=== PATIENT | female | born 1960 | race Caucasian/White ===

== ENCOUNTER → 2016-12-25 | Outpatient (CLI) | payer BC ==
--- NOTE | 2016-12-25 10:08 | US ---
EXAMINATION TYPE: US pelvis complete transvag DATE OF EXAM: 12/25/2016 COMPARISON: NONE CLINICAL HISTORY: K62.3 Rectal prolapse. Pt states that when doctor did pelvic exam and had her bear down, that things were falling out, question uterine prolapse. TECHNIQUE: Transvaginal (TV) and Transabdominal (TA) Date of LMP: 10 years ago, no HRT EXAM MEASUREMENTS: Uterus: 6.3 x 3.4 x 4.6 cm Endometrial Stripe: 0.4 cm Right Ovary: 1.5 x 1.3 x 1.0 cm Left Ovary: 1.6 x 1.0 x 0.9 cm 1. Uterus: Anteverted wnl 2. Endometrium: wnl 3. Right Ovary: wnl 4. Left Ovary: wnl 5. Bilateral Adnexa: wnl 6. Posterior cul-de-sac: wnl IMPRESSION: Unremarkable study.
== END | disposition home or self-care (01) ==
LOC: RADUSWWP 07:01
PROVIDERS: ATTEND Family Medicine
DX: K62.3 Rectal prolapse (principal)
CPT/HCPCS: 76830; 76856

== ENCOUNTER → 2017-01-13 | Outpatient (CLI) | payer BC ==
[2017-01-13 14:14] LABS: Basophils % (A) 1 %; CH 31.5; CHCM 33.8; Eosinophils # (A) 0.2 k/uL (0-0.7); Eosinophils % (A) 3 %; HCT 38.8 % (34.0-46.0); HDW 2.38; HGB 13.2 gm/dL (11.4-16.0); Luc # (Auto) 0.19; Luc % (Auto) 3; Lymphocytes # (A) 1.2 k/uL (1.0-4.8); Lymphocytes % (A) 22 %; MCH 31.8 pg (25.0-35.0); MCHC 33.9 g/dL (31.0-37.0); MCV 93.8 fL (80.0-100.0); Mean Platelet Volume 7.5; Monocytes # (A) 0.4 k/uL (0-1.0); Monocytes % (A) 7 %; Neutrophils # (A) 3.6 k/uL (1.3-7.7); Neutrophils % (A) 64 %; RBC 4.14 m/uL (3.80-5.40); RDW 12.6 % (11.5-15.5); WBC 5.5 k/uL (3.8-10.6); WBC (Perox) 5.37
[2017-01-13 14:24] LABS: Anion Gap 9 mmol/L; Blood Urea Nitrogen 18 mg/dL (7-17); Carbon Dioxide 24 mmol/L (22-30); Chloride 108 mmol/L (98-107); Glucose 89 mg/dL (74-99); Non-African American GFR(MDRD) >60 (>60 ml/min/1.73 sqM); Potassium 4.5 mmol/L (3.5-5.1); Sodium 141 mmol/L (137-145)
== END | disposition home or self-care (01) ==
LOC: LABPAT 13:25
PROVIDERS: ATTEND Obstetrics & Gynecology
DX: Z01.812 Encounter for preprocedural laboratory examination (principal); N81.4 Uterovaginal prolapse, unspecified
CPT/HCPCS: 80051; 82565; 82947; 84520; 85025; 86850; 86900; 86901; 87086

== ENCOUNTER 2017-01-20 09:06 | Observation (INO) | payer BC ==
--- NOTE | 2017-01-17 05:46 | HP ---
DATE OF ADMISSION: 01/20/2017 HISTORY: This is a 56-year-old 7, para 4-0-3-4 woman who will be admitted for surgical repair of symptomatic pelvic prolapse. She reports bothersome tissue protrusion from the vagina with activity. On examination, she is found to have a third degree cystocele, third degree cervical uterine prolapse and second degree rectocele. She denies any vaginal bleeding, urinary incontinence or incontinence of stool or flatus. She has no prior history of urinary incontinence. ALLERGIES: None. MEDICATIONS: 1. Levothyroxine 50 mcg q. day. 2. Ibuprofen 800 mg t.i.d. p.r.n. PAST MEDICAL HISTORY: Hypothyroidism and pelvic prolapse. PAST SURGICAL HISTORY: Rotator cuff repair in 2014 and tubal ligation in the distant past. REPRODUCTIVE HISTORY: The patient is a 8, para 4-0-3-4 with a history of 4 vaginal deliveries and 3 miscarriages. Her last menstrual period was in 2009 and she has no history of postmenopausal bleeding. She has no history of abnormal Pap smears or STDs. SOCIAL HISTORY: She is . She is a former smoker having quit in 2015. She is a social alcohol user. FAMILY HISTORY: Significant for lymphoma in her father and multiple family members with skin cancer. REVIEW OF SYSTEM: Positive for pelvic and abdominal pressure, low back pain and tissue protrusion from the vagina. Negative for vaginal bleeding, incontinence, urinary retention, chronic constipation or diarrhea. PHYSICAL EXAM: Height 5 feet 3-1/2 inches, weight 172 pounds. Blood pressure 124 /90. In general, this is a pleasant female in no obvious distress. HEENT exam is unremarkable with no palpable lymphadenopathy or thyromegaly. The lungs are clear to auscultation bilaterally and the heart is a regular rate and rhythm with no detectable murmur. The abdomen is slim, soft and nontender without rebound, guarding or flank pain. On pelvic examination, there is tissue visible at the introitus. With speculum examination and Valsalva, there is a third degree cystocele, third degree cervical uterine prolapse and second degree rectocele. On bimanual examination, the uterus is small, freely mobile and in the midline. There are no adnexal abnormalities appreciated. Rectovaginal examination confirms. Neurologically, the patient is grossly intact with no focal deficits. There are no obvious skin lesions or cyanosis noted. ASSESSMENT: A 56-year-old 7, para 4 woman with symptomatic third degree pelvic prolapse. She is scheduled to undergo a total vaginal hysterectomy with anterior colporrhaphy and possible posterior colporrhaphy. This procedure, anticipated recovery course and risks have been reviewed with the patient in detail in the office setting. Risks include, but are not limited to bleeding, transfusion, infection, laparotomy, damage to bowel, bladder, ureters and/or other pelvic or abdominal structures. There are anesthesia complications, risks of DVT, PE and/or . She also understands the risk of pelvic prolapse recurrence in the future. The patient understands these risks, a second opinion has been offered and declined and she is scheduled to undergo the above named procedure on 01/20/17. SOLANGE
[2017-01-17 09:13] VITALS: BMI 32.3
[~2017-01-20 09:06] MED LIST: DEXAMETHASONE SOD PHOSPHATE 10 MG/ML 1 ML VIAL IV ONE; ONDANSETRON 4 MG/2 ML VIAL IVP ONE; SCOPOLAMINE 1.5MG/72HR PATCH TRANSDERM ONE; ceFAZolin 2 GM in SODIUM CHLORIDE 0.9% 100 ML IVPB ONE
[2017-01-20] MEDS: LACTATED RINGERS 1,000 ML IV SCH ×2 (10:15→20:02)
[2017-01-20] MEDS ORDERED: LIDOCAINE 1% 20 ML VIAL (10MG/ML) FOR IV START INTRADERMA ONE (10:18)
[2017-01-20] MEDS: MIDAZOLAM 2 MG/2 ML VIAL IV PRN ×2 (10:36→11:05)
[2017-01-20] MEDS ORDERED: LIDOCAINE 1% INJ 10MG/ML (20 ML MDV) ONE (11:57)
[2017-01-20] MEDS ORDERED: SUCCINYLCHOLINE CHLORIDE 100 MG/5 ML SYR IV ONE (11:57)
[2017-01-20] MEDS ORDERED: MIDAZOLAM 2 MG/2 ML VIAL ONE (11:57)
[2017-01-20] MEDS ORDERED: HYDROmorphone (PF) 1 MG/ML ONE (11:57)
[2017-01-20] MEDS ORDERED: fentaNYL (PF) 50 MCG/ML 2 ML AMP ONE (11:57)
[2017-01-20] MEDS ORDERED: GLYCOPYRROLATE 0.2 MG/ML 2 ML VIAL ONE (11:57)
[2017-01-20] MEDS ORDERED: ROCURONIUM BROMIDE 10 MG/ML 10 ML VIAL IV ONE (11:57)
[2017-01-20] MEDS ORDERED: NEOSTIGMINE 1 MG/ML 10 ML VIAL ONE (11:57)
[2017-01-20] MEDS ORDERED: PROPOFOL 10 MG/ML 20 ML VIAL IV ONE (11:57)
[2017-01-20] MEDS ORDERED: KETOROLAC 30 MG/ML 1 ML VIAL ONE (11:57)
[2017-01-20] MEDS ORDERED: VASOPRESSIN 20 UNIT/ML 1 ML VIAL SQ ONE ×2 (12:21)
[2017-01-20] MEDS ORDERED: BACITRACIN 500 UNIT/GM OINT 28.4 GM TUBE TOPICAL ONE (12:45)
[2017-01-20] MEDS ORDERED: LACTATED RINGERS 1,000 ML IV ONE (12:53)
--- NOTE | 2017-01-20 13:12 | P.OP ---
Date of Procedure: 01/20/17 Preoperative Diagnosis: Third-degree cystocele Third-degree cervical uterine prolapse Second-degree rectocele Postoperative Diagnosis: Same Procedure(s) Performed: Total vaginal hysterectomy with anterior colporrhaphy Implants: Anesthesia: CHRISTIANAA Surgeon: Doris Jaramillo Floor Cashier #1: Whit Guido Estimated Blood Loss (ml): 15 IV fluids (ml): 1,000 Urine output (ml): 150 Pathology: other (Cervix and uterus) Condition: stable Disposition: PACU Indications for Procedure: Symptomatic third-degree cystocele, third degree cervical uterine prolapse and second-degree rectocele Operative Findings: As above Description of Procedure: After the patient was met preoperatively and all questions were answered, she was taken to the operating room where anesthetic was administered without incident. She was in positioned, prepped and draped in the dorsal high lithotomy position. The bladder was drained for approximately 100 mL of clear urine. A weighted speculum was placed in the vagina and the cervix was grasped anteriorly with a single-tooth tenaculum. Dilute vasopressin solution was infused in the vaginal mucosa circumferentially about the cervix. An incision with the scalpel was made circumferentially about the cervix. The vaginal mucosa was probably away from the underlying cervical tissue. The posterior peritoneum was entered sharply and tagged with 0 Vicryl suture. The long weighted speculum was then placed after the short weighted speculum was removed. The anterior mucosa was further advanced. The uterosacral ligaments were clamped, cut and suture ligated bilaterally and tagged. 2-0 Vicryl suture was utilized throughout muscle otherwise indicated. The bladder was advanced both sharply and bluntly anteriorly. The uterine vasculature was then clamped cut and suture ligated bilaterally. The round ligaments were clamped cut and suture ligated bilaterally. The posterior fundus was then delivered. The anterior peritoneum was entered sharply. The right followed by the left cornual pedicles were clamped. The specimen was removed. The cornual pedicles were doubly suture ligated. Both pedicles were inspected and noted to be hemostatic. Neither ovary was easily visualized and the surgical field. No obvious pelvic masses or adnexal masses were appreciated. The long weighted speculum was removed and the short weighted speculum was replaced. The peritoneum was then closed in a pursestring fashion. The uterosacral ligaments were then reapproximated including the vaginal cuff in the midline and the cuff was closed in an interrupted fashion. Attention was then turned to the anterior pair. The anterior vaginal Yu was infused with additional dilute vasopressin solution, 10 mL's. The vaginal Koza was then undermined with the Metzenbaum scissors and incised in the midline up to a level of approximately 2 cm below the urethral orifice. The underlying bladder tissue was bluntly away from the vaginal Koza bilaterally to the level of the fascial defect. The vesicovaginal fascia was then reapproximated in the midline with 2- 0 Vicryl suture using approximate 4 Roula plication stitches. This effectively reduced the cystocele. Prior to placement of the plication stitches Corona catheter was placed and additional 20 mL of clear urine was obtained. The excess vaginal mucosa was trimmed and the vaginal mucosa was then closed in a running locked fashion with 2-0 Vicryl suture. At this point the posterior vagina was inspected. There is a small second-degree rectocele noted however it was felt as this as if this was repaired that this would foreshorten the vagina and close the introitus significantly enough that future dyspareunia may be a possibility. Therefore the procedure was terminated at this point. The vagina was packed with bacitracin-soaked Kerlix sponge. All counts reported to me as correct by the operating room staff and the patient was awoken from anesthetic without incident. She was then transported recovery in stable condition.
[2017-01-20] MEDS: HYDROmorphone 1 MG/ML 1 ML SYRINGE IVP PRN ×4 (13:27→13:58)
[2017-01-20] MEDS ORDERED: ONDANSETRON 4 MG/2 ML VIAL IVP ONE (13:38)
[2017-01-20] MEDS ORDERED: Acetaminophen-Codeine 300-30mg TAB PO PRN (14:58)
[2017-01-20] MEDS ORDERED: SIMETHICONE 80 MG CHEWABLE PO PRN (14:58)
[2017-01-20] MEDS ORDERED: ONDANSETRON 4 MG/2 ML VIAL IVP PRN (14:58)
[2017-01-20] MEDS ORDERED: diphenhydrAMINE 50 MG/ML 1 ML VIAL IVP PRN (14:58)
[2017-01-20] MEDS ORDERED: METOCLOPRAMIDE 5 MG/ML 2 ML VIAL IVP PRN (14:58)
[2017-01-20] MEDS ORDERED: IBUPROFEN 600 MG TAB PO PRN (14:58)
[2017-01-20] MEDS: Acetaminophen-Codeine 300-30mg TAB PO PRN (17:03)
[2017-01-20] MEDS: KETOROLAC 30 MG/ML 1 ML VIAL IVP PRN (19:45)
[2017-01-21] MEDS: SENNOSIDES-DOCUSATE SODIUM 1 EACH TAB PO SCH ×2 (00:07→12:18)
[2017-01-21] MEDS: Acetaminophen-Codeine 300-30mg TAB PO PRN ×3 (00:13→11:01)
[2017-01-21] MEDS: LACTATED RINGERS 1,000 ML IV SCH ×3 (01:05→06:22)
[2017-01-21] MEDS: KETOROLAC 30 MG/ML 1 ML VIAL IVP PRN (04:06)
[2017-01-21] MEDS ORDERED: LEVOTHYROXINE 50 MCG TAB PO SCH (06:30)
[2017-01-21 07:56] LABS: Basophils % (A) 0 %; CH 31.4; CHCM 33.4; Eosinophils % (A) 0 %; HDW 2.21; Luc # (Auto) 0.16; Luc % (Auto) 2; Lymphocytes # (A) 1.8 k/uL (1.0-4.8); Lymphocytes % (A) 18 %; MCH 31.9 pg (25.0-35.0); MCHC 33.7 g/dL (31.0-37.0); MCV 94.6 fL (80.0-100.0); Monocytes # (A) 0.5 k/uL (0-1.0); Monocytes % (A) 5 %; Neutrophils # (A) 7.6 k/uL (1.3-7.7); Neutrophils % (A) 75 %; RBC 2.97 m/uL (3.80-5.40); RDW 12.6 % (11.5-15.5); WBC 10.1 k/uL (3.8-10.6); WBC (Perox) 10.31
[2017-01-21 08:07] LABS: HGB 9.4 gm/dL (11.4-16.0)
--- NOTE | 2017-01-21 08:32 | P.DS ---
Providers Date of admission: 01/21/17 05:19 Expected date of discharge: 01/21/17 Attending physician: Doris Jaramillo Primary care physician: Thang Uriostegui - Discharge Diagnosis(es) (1) Cystocele or rectocele with uterine prolapse Current Visit: Yes Status: Acute Hospital Course: He 6-year-old woman with a history of symptomatic third-degree cystocele, third degree cervical uterine prolapse and second-degree rectocele. She was admitted on and went to the operating room where she underwent a total vaginal hysterectomy and anterior colporrhaphy under general anesthetic. Please see the operative report for details. By the evening of postoperative day 0 she was feeling very well. She was tolerating a general diet and her pain was well- controlled with oral pain medications. By the morning of postoperative day #1 her vaginal packing and Corona catheter were removed. Voiding trials were initiated. She was tolerating regular diet. Her physical exam was benign with no active vaginal bleeding. Her vital signs were stable. She was therefore discharged home pending successful outcome of postvoid trials. Procedures: Gen. hysterectomy with anterior colporrhaphy Patient Condition at Discharge: Good Plan - Discharge Summary New Discharge Prescriptions: New Acetaminophen-Codeine 300-30mg [Tylenol w/codeine #3] 2 each PO Q6HR PRN #30 tab PRN Reason: Severe Pain Ibuprofen [Motrin] 600 mg PO Q6HR PRN #0 tab PRN Reason: Mild Discomfort Sennosides-Docusate Sodium [Senokot-S] 2 each PO BID tab No Action Levothyroxine Sodium [Synthroid] 50 mcg PO DAILY Ibuprofen [Motrin] 800 mg PO DAILY PRN PRN Reason: Pain Discharge Medication List Ibuprofen [Motrin] 800 mg PO DAILY PRN 01/17/17 [History] Levothyroxine Sodium [Synthroid] 50 mcg PO DAILY 01/17/17 [History] Acetaminophen-Codeine 300-30mg [Tylenol w/codeine #3] 2 each PO Q6HR PRN #30 tab 01/21/17 [Rx] Ibuprofen [Motrin] 600 mg PO Q6HR PRN #0 tab 01/21/17 [Rx] Sennosides-Docusate Sodium [Senokot-S] 2 each PO BID tab 01/21/17 [Rx] Patient Instructions/Handouts: Hysterectomy (DC) Activity/Diet/Wound Care/Special Instructions: No heavy lifting greater than 10 pounds for the next 2 weeks. Nothing in the vagina, no intercourse for 6 weeks. All the office with any concerning signs or symptoms including vaginal bleeding, inability to void, severe abdominal pain or constipation. Discharge Disposition: HOME SELF-CARE
[2017-01-21 12:15] VITALS: BP 101/50; PULSE 95; RESP 16; TEMP 99
== END 2017-01-21 12:37 | disposition home or self-care (01) ==
LOC: OR 09:06 → 4FBP 13:06 → 6PED 13:06 → OR 01-21 05:19 → 4FBP 01-21 05:19
PROVIDERS: ADMIT Obstetrics & Gynecology; ATTEND Obstetrics & Gynecology
DX: N81.4 Uterovaginal prolapse, unspecified (principal); E03.9 Hypothyroidism, unspecified; Z79.899 Other long term (current) drug therapy; Z87.891 Personal history of nicotine dependence
CPT/HCPCS: 85025; 86850; 86900; 86901; 88307

== ENCOUNTER → 2017-11-11 | Outpatient (CLI) | payer OTHER, BC ==
--- NOTE | 2017-11-12 22:09 | FL ---
EXAMINATION TYPE: Right shoulder fluoroscopic-guided arthrogram injection. DATE OF EXAM: 11/11/2017 HISTORY: 57-year-old female rotator cuff pathology, lax joint. Patient reports rotator cuff repair 2 years ago. PROCEDURES: 1. Right shoulder fluoroscopy. 2. Right shoulder arthrogram. TECHNIQUE: The procedure, risks, and alternatives, were discussed with the patient, who requested that shiela alarcon The consent form was signed, and teach-back occurred. The site/side of the procedure was marked with a line with participation by the patient. The accompan emely paperwork was verified for consistency. A directed history and physical exam was performed prior to the procedure. Medication reconciliation was performed by ancillary personnel. A critical pause was performed with assisting personnel just pr ior to the procedure, and the patient's identity was confirmed using 2 identifiers. Imaging guidance was utilized to select the precise skin entry point just prior to the procedure, ant erior right shoulder. The right shoulder was prepped and draped in the usual sterile fashion and local 1% lidocaine anesthe helena was instilled. Under fluoroscopic guidance, a 22 gauge spinal needle was introduced into the rig ht glenohumeral joint. Appropriate needle tip position was confirmed after a small amount of contrast injection. Approximately 12 ml of a mixture of Isovue 300 iodinated contrast and gadolinium was injected into th e glenohumeral joint. The needle was then removed. The patient tolerated the procedure well. Initial images show widening at the AC joint on the AP view but with apparent joint space narrowing o f the axillary view. This is a new finding from 05/06/2014. On physical exam, there is a prominent rita mp along the superior aspect of the AC joint. After contrast administration, there is extension of contrast across the cuff into the overlying burs a and into the AC joint compatible with geyser sign. A post-procedure note was placed into the medical record. There was no immediate complication. After the procedure, the patient's condition was unchanged. Estimated blood loss was minimal. IMPRESSION: Technically successful right shoulder arthrogram injection for MRI. No immediate complication. There is a full-thickness tear of the rotator cuff and geyser sign.
--- NOTE | 2017-11-12 22:23 | MR ---
EXAMINATION TYPE: MR arthrogram right shoulder DATE OF EXAM: 11/11/2017 COMPARISON: Arthrogram injection same day HISTORY: 57 year-old female right shoulder arthrogram, rt shoulder pain x 6 mos, prior cuff repair 2 years ago. Lax joint. Technique: Multiplanar, multisequence images of the right shoulder were obtained after intra-articula r injection of a gadolinium mixture. Please refer to arthrogram injection report of the same day for further details. FINDINGS: The intracapsular portion of the long head biceps tendon is not seen. There appears to be prior pinni ng along the anterior humeral head possibly from prior long head biceps tenodesis. Some tendon fibers are seen along the mid to lower bicipital groove. The subscapularis tendon appears grossly intact. There is widening of the AC joint with contrast extending into the joint space and bulging the capsul e superiorly. Injected intra-articular contrast fills the subacromial/subdeltoid bursa and is contiguous with the j oint space and AC joint. There is evidence of double anchor repair of the supraspinatus tendon with a large re-tear of the entire supraspinatus tendon extending into the anterior most infraspinatus tend on fibers measuring 2.9 cm AP. The joint stump is retracted medially to the level of the AC joint by approximately 3.8 cm. The insertional fibers of the infraspinatus tendon are thickened and very heterogeneous. There is very mild fatty streaks within both supraspinatus and infraspinatus muscle bellies. Isolated fatty atrophy of the teres minor muscle belly. No mass lesion seen within the quadrilateral space. Evaluation of the glenohumeral joint shows a degenerative and blunted superior and posterior glenoid labrum. Findings suggest an elongated paralabral cyst posterior superior quadrant measuring 1.1 x 0.3 cm, axial series 701 image 14 and the coronal series 301 image 18. Prominent fluid distention of the glenohumeral joint. No Hill-Sachs deformity or os acromiale. IMPRESSION: 1. Large full-thickness re-tear involving the entire supraspinatus tendon with tear extending into th e anteriormost fibers of the infraspinatus tendon. This measures 2.9 cm AP with the stump retracted t o the level of the AC joint by 3.8 cm. 2. Severe insertional tendinosis of the infraspinatus tendon. 3. Only mild fatty streaks within both supraspinatus and infraspinous muscle bellies. Isolated fatty atrophy of the teres minor can be seen with quadrilateral space syndrome. Clinically correlate. 4. Secondary geyser sign widening the AC joint. 5. A pin along the anterior humeral head probably related to prior long head biceps tenodesis. The in tracapsular portion of the long head biceps tendon is not visualized. 6. Degenerative and blunted superior and posterior labrum with suggestion of a 1.1 x 0.3 cm posterior superior paralabral cyst.
== END | disposition home or self-care (01) ==
LOC: RADFLMAIN 12:58
PROVIDERS: ATTEND Orthopaedic Surgery
DX: M75.120 Complete rotator cuff tear or rupture of unspecified shoulder, not specified as traumatic (principal); M25.20 Flail joint, unspecified joint; M25.519 Pain in unspecified shoulder
CPT/HCPCS: 23350; 73040; 73222; J2001; A9581; Q9967

== ENCOUNTER → 2022-06-13 | Outpatient (CLI) | payer OTHER ==
--- NOTE | 2022-06-14 08:39 | XR ---
EXAMINATION TYPE: XR lumbosacral spine min 4V DATE OF EXAM: 06/13/2022 Comparison: None Clinical History: 61-year-old female M54.50 Neck/back pain Findings: 5 lumbar type vertebral bodies. Small T12 ribs. Facet arthropathy mid to lower lumbar spine. Degenera tive grade 1 anterolisthesis L4-L5. Vertebral body heights are preserved and remaining alignment is m aintained. Impression: Facet arthropathy mid to lower lumbar spine with a grade 1 anterolisthesis at L4-L5. No vertebral com pression collapse.
== END | disposition home or self-care (01) ==
LOC: RADXRMAIN 14:09
PROVIDERS: ATTEND Family Medicine
DX: M47.816 Spondylosis without myelopathy or radiculopathy, lumbar region (principal); M43.16 Spondylolisthesis, lumbar region
CPT/HCPCS: 72110

== ENCOUNTER 2022-09-25 14:34 | Emergency (ER) | payer BC ==
[2022-09-25 15:02] VITALS: TEMP 98.9
[2022-09-25] MEDS ORDERED: SODIUM CHLORIDE 0.9% 1,000 ML IV STA (16:27)
--- NOTE | 2022-09-25 16:30 | ED ---
General Adult HPI - General Chief complaint: Dizziness Stated complaint: Dizzy/Sob Time Seen by Provider: 09/25/22 15:10 Source: patient Mode of arrival: ambulatory Limitations: no limitations - History of Present Illness Initial comments: 62-year-old female presents emergency department reporting dizziness, jaw pain, neck pain and shortness of breath. States it has been intermittent for the past 3 weeks. Denies provocative factors. No chest pain. No fevers, chills or cough. No previous history of cardiac disease. No calf pain or swelling. No history of DVT or PE. Denies a symptoms are worse with any positional changes. No headaches. No speech deficits. She denies vertigo. No history of similar in the past. Has not seen anybody for her symptoms yet. No other alleviating, precipitating or modifying factors - Related Data Home Medications Medication Instructions Recorded Confirmed Ibuprofen [Motrin] 800 mg PO Q8H PRN 01/17/17 09/25/22 Escitalopram [Lexapro] 10 mg PO DAILY 09/25/22 09/25/22 Levothyroxine Sodium [Synthroid] 88 mcg PO DAILY 09/25/22 09/25/22 Allergies Allergy/AdvReac Type Severity Reaction Status Date / Time No Known Allergies Allergy Verified 09/25/22 18:43 Review of Systems ROS Statement: Those systems with pertinent positive or pertinent negative responses have been documented in the HPI. ROS Other: All systems not noted in ROS Statement are negative. Past Medical History Past Medical History: No Reported History History of Any Multi-Drug Resistant Organisms: None Reported Past Surgical History: Hysterectomy, Orthopedic Surgery Additional Past Surgical History / Comment(s): rt rotator cuff surgery x 3 Past Psychological History: Depression Smoking Status: Former smoker Past Alcohol Use History: None Reported Past Drug Use History: Marijuana General Exam Limitations: no limitations General appearance: alert, in no apparent distress Head exam: Present: atraumatic, normocephalic, normal inspection Eye exam: Present: normal appearance, PERRL, EOMI. Absent: scleral icterus, conjunctival injection, periorbital swelling ENT exam: Present: normal exam, mucous membranes moist Neck exam: Present: normal inspection. Absent: tenderness, meningismus, lymphadenopathy Respiratory exam: Present: normal lung sounds bilaterally. Absent: respiratory distress, wheezes, rales, rhonchi, stridor Cardiovascular Exam: Present: regular rate, normal rhythm, normal heart sounds. Absent: systolic murmur, diastolic murmur, rubs, gallop, clicks GI/Abdominal exam: Present: soft, normal bowel sounds. Absent: distended, tenderness, guarding, rebound, rigid Extremities exam: Present: normal inspection, full ROM, normal capillary refill. Absent: tenderness, pedal edema, joint swelling, calf tenderness Back exam: Present: normal inspection Neurological exam: Present: alert, oriented X3, CN II-XII intact Psychiatric exam: Present: normal affect, normal mood Skin exam: Present: warm, dry, intact, normal color. Absent: rash Course Vital Signs 09/25/22 09/25/22 09/25/22 14:57 17:00 17:07 Temperature 98.9 F Pulse Rate 69 60 Respiratory 18 20 Rate Blood Pressure 135/91 132/82 Blood Pressure 139/78 [Right Arm] O2 Sat by Pulse 98 97 97 Oximetry 09/25/22 09/25/22 09/25/22 17:12 17:17 17:30 Temperature Pulse Rate 59 L Respiratory 12 Rate Blood Pressure 143/87 Blood Pressure 152/93 142/87 [Right Arm] O2 Sat by Pulse 97 Oximetry 09/25/22 09/25/22 18:30 19:00 Temperature Pulse Rate 70 Respiratory 12 Rate Blood Pressure 125/79 Blood Pressure [Right Arm] O2 Sat by Pulse 92 L 95 Oximetry EKG Findings - EKG Comments: EKG Findings:: EKG demonstrates sinus bradycardia with a rate of 58. MT interval 183. QRS 93. QTC of 374. Inverted T waves 2, 3, V3. No acute ST segment elevation Medical Decision Making - Medical Decision Making Was pt. sent in by a medical professional or institution (, PA, MANAGER OF REVENUE, urgent care, hospital, or detention...) When possible be specific @ -No Did you speak to anyone other than the patient for history (EMS, parent, family, police, friend...)? What history was obtained from this source @ -No Did you review nursing and triage notes (agree or disagree)? Why? @ -I reviewed and agree with nursing and triage notes Were old charts reviewed (outside hosp., previous admission, EMS record, old EKG, old radiological studies, urgent care reports/EKG's, detention records)? Report findings @ -No old charts were reviewed Differential Diagnosis (chest pain, altered mental status, abdominal pain women, abdominal pain men, vaginal bleeding, weakness, fever, dyspnea, syncope, headache, dizziness, GI bleed, back pain, seizure, CVA, palpatations, mental health, musculoskeletal)? @ -acs, nstemi, stemi, cva, pe, cervical radiculopathy EKG interpreted by me (3pts min.). @ -yes X-rays interpreted by me (1pt min.). @ -None done CT interpreted by me (1pt min.). @ -yes U/S interpreted by me (1pt. min.). @ -yes What testing was considered but not performed or refused? (CT, X-rays, U/S, labs)? Why? @ -None What meds were considered but not given or refused? Why? @ -None Did you discuss the management of the patient with other professionals (professionals i.e. , PA, MANAGER OF REVENUE, lab, RT, psych nurse, psychiatric social worker supervisor, route rider, teacher, corporate trust officer, case aide)? Give summary @ -No Was smoking cessation discussed for >3mins.? @ -No Was critical care preformed (if so, how long)? @ -No Were there social determinants of health that impacted care today? How? (Homelessness, low income, unemployed, alcoholism, drug addiction, transportation, low edu. Level, literacy, decrease access to med. care, half-way, rehab)? @ -No Was there de-escalation of care discussed even if they declined (Discuss DNR or withdrawal of care, Hospice)? DNR status @ -No What co-morbidities impacted this encounter? (DM, HTN, Smoking, COPD, CAD, Cancer, CVA, ARF, Chemo, Hep., AIDS, mental health diagnosis, sleep apnea, morbid obesity)? @ -None Was patient admitted / discharged? Hospital course, mention meds given and rout e, prescriptions, significant lab abnormalities, going to OR and other pertinent info. @ -Upon arrival patient placed in room 28. History and physical exam is performed. She is placed on continuous pulse ox and cardiac monitoring. Laboratory studies were conducted and reviewed. D-dimer elevated at 0.7. CT the head and cervical spine is performed which demonstrates spondylitic changes and lower cervical spine. Right Sinusitis. Patient sent For CT which demonstrates no evidence of pulmonary embolism. Minimal reticular interstitial density in the lingula. Results are discussed the patient. Orthostatics are negative. Patient will be discharged home. Instructed to follow-up with her primary care doctor for her symptoms return for any new or worsening symptoms per patient agreeable discharged home in stable condition Undiagnosed new problem with uncertain prognosis? @ -yes Drug Therapy requiring intensive monitoring for toxicity (Heparin, Nitro, Insulin, Cardizem)? @ -No Were any procedures done? @ -No Diagnosis/symptom? @ -acute jaw pain, acute palpitations Acute, or Chronic, or Acute on Chronic? @ -acute Uncomplicated (without systemic symptoms) or Complicated (systemic symptoms)? @ -complicated Side effects of treatment? @ -No Exacerbation, Progression, or Severe Exacerbation? @ -No Poses a threat to life or bodily function? How? (Chest pain, USA, AR, pneumonia, PE, COPD, DKA, ARF, appy, cholecystitis, CVA, Diverticulitis, Homicidal, Suicidal, threat to staff... and all critical care pts) @ -yes - Lab Data Result diagrams: 09/25/22 17:07 09/25/22 17:07 Lab Results 09/25/22 09/25/22 09/25/22 Range/Units 17:07 17:07 17:07 WBC 9.4 (3.8-10.6) k/uL RBC 4.74 (3.80-5.40) m/uL Hgb 14.1 (11.4-16.0) gm/dL Hct 43.8 (34.0-46.0) % MCV 92.4 (80.0-100.0) fL MCH 29.8 (25.0-35.0) pg MCHC 32.3 (31.0-37.0) g/dL RDW 12.5 (11.5-15.5) % Plt Count 312 (150-450) k/uL MPV 8.5 Neutrophils % 60 % Lymphocytes % 30 % Monocytes % 5 % Eosinophils % 2 % Basophils % 1 % Neutrophils # 5.7 (1.3-7.7) k/uL Lymphocytes # 2.8 (1.0-4.8) k/uL Monocytes # 0.5 (0-1.0) k/uL Eosinophils # 0.1 (0-0.7) k/uL Basophils # 0.1 (0-0.2) k/uL D-Dimer (<0.60) mg/L FEU Sodium 141 (137-145) mmol/L Potassium 4.2 (3.5-5.1) mmol/L Chloride 103 (98-107) mmol/L Carbon Dioxide 28 (22-30) mmol/L Anion Gap 10 mmol/L BUN 13 (7-17) mg/dL Creatinine 0.66 (0.52-1.04) mg/dL Est GFR (CKD-EPI)AfAm >90 (>60 ml/min/1.73 sqM) Est GFR (CKD-EPI)NonAf >90 (>60 ml/min/1.73 sqM) Glucose 83 (74-99) mg/dL Calcium 10.4 H (8.4-10.2) mg/dL Total Bilirubin 0.6 (0.2-1.3) mg/dL AST 30 (14-36) U/L ALT 34 (4-34) U/L Alkaline Phosphatase 78 (38-126) U/L Troponin I <0.012 (0.000-0.034) ng/mL Total Protein 7.8 (6.3-8.2) g/dL Albumin 4.7 (3.5-5.0) g/dL TSH 0.664 (0.465-4.680) mIU/L 09/25/22 Range/Units 17:07 WBC (3.8-10.6) k/uL RBC (3.80-5.40) m/uL Hgb (11.4-16.0) gm/dL Hct (34.0-46.0) % MCV (80.0-100.0) fL MCH (25.0-35.0) pg MCHC (31.0-37.0) g/dL RDW (11.5-15.5) % Plt Count (150-450) k/uL MPV Neutrophils % % Lymphocytes % % Monocytes % % Eosinophils % % Basophils % % Neutrophils # (1.3-7.7) k/uL Lymphocytes # (1.0-4.8) k/uL Monocytes # (0-1.0) k/uL Eosinophils # (0-0.7) k/uL Basophils # (0-0.2) k/uL D-Dimer 0.70 H (<0.60) mg/L FEU Sodium (137-145) mmol/L Potassium (3.5-5.1) mmol/L Chloride (98-107) mmol/L Carbon Dioxide (22-30) mmol/L Anion Gap mmol/L BUN (7-17) mg/dL Creatinine (0.52-1.04) mg/dL Est GFR (CKD-EPI)AfAm (>60 ml/min/1.73 sqM) Est GFR (CKD-EPI)NonAf (>60 ml/min/1.73 sqM) Glucose (74-99) mg/dL Calcium (8.4-10.2) mg/dL Total Bilirubin (0.2-1.3) mg/dL AST (14-36) U/L ALT (4-34) U/L Alkaline Phosphatase (38-126) U/L Troponin I (0.000-0.034) ng/mL Total Protein (6.3-8.2) g/dL Albumin (3.5-5.0) g/dL TSH (0.465-4.680) mIU/L Disposition Clinical Impression: Dizziness, Palpitations, Jaw pain Disposition: HOME SELF-CARE Condition: Stable Instructions (If sedation given, give patient instructions): Dizziness (ED) Additional Instructions: Please follow-up with Dr. Uriostegui for further evaluation. I recommend Holter monitoring, stress test and echo. Return to the emergency room for any new or worsening symptoms Is patient prescribed a controlled substance at d/c from ED?: No Referrals: Thang Uriostegui DO [Primary Care Provider] - 1-2 days Time of Disposition: 19:59
[2022-09-25 17:46] LABS: Basophils # (A) 0.1 k/uL (0-0.2); Basophils % (A) 1 %; Eosinophils # (A) 0.1 k/uL (0-0.7); Eosinophils % (A) 2 %; HCT 43.8 % (34.0-46.0); HGB 14.1 gm/dL (11.4-16.0); Lymphocytes # (A) 2.8 k/uL (1.0-4.8); Lymphocytes % (A) 30 %; MCH 29.8 pg (25.0-35.0); MCHC 32.3 g/dL (31.0-37.0); MCV 92.4 fL (80.0-100.0); Mean Platelet Volume 8.5; Monocytes # (A) 0.5 k/uL (0-1.0); Monocytes % (A) 5 %; Neutrophils # (A) 5.7 k/uL (1.3-7.7); Neutrophils % (A) 60 %; Platelet Count 312 k/uL (150-450); RBC 4.74 m/uL (3.80-5.40); RDW 12.5 % (11.5-15.5); WBC 9.4 k/uL (3.8-10.6)
--- NOTE | 2022-09-25 17:51 | CT ---
EXAMINATION TYPE: CT brain bridgetine wo con DATE OF EXAM: 09/25/2022 COMPARISON: None HISTORY: c/o dizziness CT DLP: 1493.2 mGycm Automated exposure control for dose reduction was used. Images of the brain and cervical spine obtained with no contrast. Ventricles have normal size. There is no mass effect or midline shift. No sign of intracranial hemorr jean. Calvarium is intact. No evidence of cerebral edema. Skull base is intact. There is mucosal thic kening in the right maxillary sinus. Cervical vertebra show mild straightening. There is disc space narrowing at C5-6 and C6-7 with spurri ng of the endplates. There is hypertrophic mild cervical facet arthropathy. Prevertebral soft tissues are intact. IMPRESSION: Spondylotic changes in the lower cervical spine. Hypertrophic multilevel facet arthropathy. No fractu re. Negative CT scan of the brain. Right maxillary sinusitis.
[2022-09-25 18:00] LABS: ALT 34 U/L (4-34); AST 30 U/L (14-36); African American GFR (CKD) >90 (>60 ml/min/1.73 sqM); Albumin 4.7 g/dL (3.5-5.0); Alkaline Phosphatase 78 U/L (38-126); Anion Gap 10 mmol/L; Blood Urea Nitrogen 13 mg/dL (7-17); Calcium 10.4 mg/dL (8.4-10.2); Carbon Dioxide 28 mmol/L (22-30); Chloride 103 mmol/L (98-107); Glucose 83 mg/dL (74-99); Non-African American GFR(CKD) >90 (>60 ml/min/1.73 sqM); Potassium 4.2 mmol/L (3.5-5.1); Sodium 141 mmol/L (137-145); Total Bilirubin 0.6 mg/dL (0.2-1.3); Total Protein 7.8 g/dL (6.3-8.2)
[2022-09-25 19:10] VITALS: BP 125/79; PULSE 70; RESP 12
--- NOTE | 2022-09-25 19:27 | CT ---
EXAMINATION TYPE: CT chest angio for PE DATE OF EXAM: 09/25/2022 COMPARISON: None HISTORY: elevated d-dimer CT DLP: 447.8 mGycm Automated exposure control for dose reduction was used. CONTRAST: Performed with IV Contrast, patient injected with 100 mL of Isovue 370. Images obtained from the thoracic inlet to the diaphragm with the IV contrast. There are 3-D post pro cessed images. The lungs are clear of consolidation. No pleural effusion. Heart size is normal. No pericardial effus ion. There are no hilar masses. There is no mediastinal adenopathy. Thoracic aorta is intact. The ascendin g aorta measures 3.7 cm. No dissection. There is normal contrast opacification of the pulmonary arteries. No filling defects. The thoracic spine is intact. No compression fracture. Sternum is intact. Upper abdominal soft tissue s are intact. IMPRESSION: No evidence of pulmonary embolism. Negative exam. No suspicious pulmonary mass. Minimal reticular int erstitial density in the lingula left upper lobe.
== END 2022-09-25 20:26 | disposition home or self-care (01) ==
LOC: EC 14:34
DX: R42 Dizziness and giddiness (principal); R00.2 Palpitations; R68.84 Jaw pain; J32.0 Chronic maxillary sinusitis; M47.812 Spondylosis without myelopathy or radiculopathy, cervical region; F32.A Depression, unspecified; F12.90 Cannabis use, unspecified, uncomplicated; Z87.891 Personal history of nicotine dependence
CPT/HCPCS: 36415; 93005; 85379; 80053; 84443; 84484; 85025; 72125; 70450; 71275; 99284; Q9967

== ENCOUNTER → 2023-08-25 | Outpatient (CLI) | payer BC ==
--- NOTE | 2023-08-26 09:04 | MM ---
Reason for Exam: Screening (asymptomatic). Last mammogram was performed 23 year(s) and 10 month(s) ago. Patient History: Menarche at age 12. First Full-Term at age 21. Hysterectomy at age 56. Postmenopausal. Risk Values: Terri 5 year model risk: 1.5%. NCI Lifetime model risk: 6.8%. Prior Study Comparison: 10/24/1999 Bilateral Special View Mammogram, [facility]. Tissue Density: The breast tissue is heterogeneously dense. This may lower the sensitivity of mammography. Findings: Analyzed By CAD. Asymmetries right breast posterior nipple line slightly superiorly on MLO view and are 4.2 and 3.0 cm from the nipple on MLO view. Left breast: There is no suspicious group of microcalcifications or new suspicious mass. Overall Assessment: Benign, BI-RAD 2 Management: Diagnostic Mammogram of the right breast. [facility] will attempt to contact patient to return for supplemental views and ultrasound if indicated. Patient should continue monthly self-breast exams. A clinical breast exam by your physician is recommended on an annual basis. This exam should not preclude additional follow-up of suspicious palpable abnormalities. Note on Terri scores and lifetime risk: 1. A Terri score greater than 3% is considered moderate risk. If this is the case, consider specialist referral to assess eligibility for a risk reducing agent. 2. If overall lifetime risk for the development of breast cancer is 20% or higher, the patient may qualify for future screening with alternating mammogram and breast MRI. Electronically signed and approved by: Yoni Cline DO
== END | disposition home or self-care (01) ==
LOC: RADMAMWWP 10:08
PROVIDERS: ATTEND Family Medicine
DX: Z12.31 Encounter for screening mammogram for malignant neoplasm of breast (principal); Z78.0 Asymptomatic menopausal state
CPT/HCPCS: 77063; 77067

== ENCOUNTER → 2023-08-27 | Outpatient (CLI) | payer BC ==
--- NOTE | 2023-08-27 09:58 | MM ---
Reason for Exam: Additional evaluation requested from abnormal screening. Last screening mammogram was performed less than 1 month ago. Patient History: Menarche at age 12. First Full-Term at age 21. Hysterectomy at age 56. Postmenopausal. Maternal cousin had breast cancer under age 50. Risk Values: Terri 5 year model risk: 1.5%. NCI Lifetime model risk: 6.8%. Prior Study Comparison: 10/24/1999 Bilateral Special View Mammogram, [facility]. 08/25/2023 Bilateral MG 3D screening mammo w/cad, [facility]. Tissue Density: Right: There are scattered fibroglandular densities. Findings: Analyzed By CAD. Persistent two areas of nodularity in the central aspect anterior depth and outer central aspect middle depth with areas of nodularity measuring up to 9 mm. One appears to be along the retroareolar region and another may be 11-12 o'clock. Further ultrasound evaluation is recommended. Overall Assessment: Incomplete: need additional imaging evaluation, BI-RAD 0 Management: Diagnostic Breast Ultrasound of the right breast. Subareolar and periareolar as well as the 11 and 12:00 positions. Electronically signed and approved by: Jackelin Bingham M.D. Radiologist
--- NOTE | 2023-08-27 11:56 | USB ---
Reason for Exam: Additional evaluation requested from abnormal screening. Patient History: Menarche at age 12. First Full-Term at age 21. Hysterectomy at age 56. Postmenopausal. Maternal cousin had breast cancer under age 50. Risk Values: Terri 5 year model risk: 1.5%. NCI Lifetime model risk: 6.8%. Technique: Method: Targeted. Prior Study Comparison: 10/24/1999 Bilateral Special View Mammogram, [facility]. 08/25/2023 Bilateral MG 3D screening mammo w/cad, [facility]. Findings: The upper section of the breast of the right breast, the axilla of the right breast and the retroareolar of the right breast were scanned. Targeted ultrasound superior aspect 10:00 to 1:00 including scanning of the subareolar region and axilla. * At the 10:00 position, 5 cm from the nipple, there is a 7 x 4 mm probable cyst cluster and likely mammographic correlate. * At the 12:00 position, 3 cm from the nipple, there is a 9 x 3 mm probable cyst cluster and likely mammographic correlate. * At the 1:00 position, 3 cm from the nipple, there is a vague hypoechoic lesion with possible peripheral echogenicity. The patient reports frequent Motrin use. A small hematoma or small early solid lesion are both in the differential at this time. Three-month follow-up ultrasound to reassess. * No other solid or cystic lesion or axillary lymphadenopathy. Overall Assessment: Probably benign, BI-RAD 3 Management: Diagnostic Breast Ultrasound of the right breast in 3 months. Diagnostic Mammogram of the right breast in 6 months. A clinical breast exam by your physician is recommended on an annual basis and results should be correlated with mammographic findings. This exam should not preclude additional follow-up of suspicious palpable abnormalities. Results were given to the patient verbally at the time of exam. Electronically signed and approved by: Jackelin Bingham M.D. Radiologist
== END | disposition home or self-care (01) ==
LOC: RADMAMWWP 09:16
PROVIDERS: ATTEND Family Medicine
DX: R92.321 Mammographic fibroglandular density, right breast (principal); Z78.0 Asymptomatic menopausal state; Z80.3 Family history of malignant neoplasm of breast
CPT/HCPCS: 77061; 77065

== ENCOUNTER → 2023-11-13 | Outpatient (CLI) | payer BC ==
--- NOTE | 2023-11-13 22:16 | MR ---
EXAMINATION TYPE: MR hip LT wo con DATE OF EXAM: 11/13/2023 COMPARISON: Outside pelvic x-ray September 01, 2023 HISTORY: Left hip pain x1 year, PT 6 weeks not better, Standard multiplanar, multisequence MRI departmental protocol Multiplanar, multisequence images of the pelvis focusing on the left hip were acquired without contra st. FINDINGS: Asymmetric severe superior joint space loss is present. There is [id number] appearance wi th subchondral cystic change in the superior acetabulum and diminished T1 and increased T2 signal con sistent with edema involving the superior portion of the left femoral head. No bony fragments identif ied currently. Asymmetric moderate head neck collar spurring is present. Symmetric small to borderlin e moderate size lateral hip joint effusions are seen. Mild edema level of the greater trochanters charles aterally. No groin hernia or adenopathy is seen. No abnormal small or large bowel dilatation. Urinary bladder appears unremarkable. Uterus is surgical ly absent or atrophic in appearance. IMPRESSION: Asymmetric advanced degenerative change in the left hip joint is seen as detailed above.
--- NOTE | 2023-11-15 09:05 | MR ---
EXAMINATION TYPE: MR lumbar spine wo con DATE OF EXAM: 11/13/2023 COMPARISON: None HISTORY: Low back pain into left side x1 year CONTRAST: 0 mL intravenous Gadavist. TECHNIQUE: Multiplanar, multisequence images of the lumbar spine were acquired. FINDINGS: Cord terminates at the L1-2 level. Very subtle grade 1 spondylolisthesis of L4 internal 5 may be present. 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 These are greater on the left. Diffuse disc desiccation is present throughout the lumbar spine. L5-S1: Minimal disc bulge is present. No thecal sac contact or exiting nerve root contact evident. Mi ld facet hypertrophy is present. No spinal canal stenosis. No foraminal stenosis. L4-L5: No significant disc bulge or disc herniation. No spinal canal stenosis. No foraminal stenosi s. Mild facet hypertrophy is present with posterior lateral thecal sac contact. L3-L4: No significant disc bulge or disc herniation. No spinal canal stenosis. No foraminal stenosi s. Minimal the mentum flavum laxity is posterior lateral thecal sac contact. L2-L3: No significant disc bulge or disc herniation. No spinal canal stenosis. No foraminal stenosi s. L1-L2: No significant disc bulge or disc herniation. No spinal canal stenosis. No foraminal stenosi s. T12-L1: No significant disc bulge or disc herniation. No spinal canal stenosis. No foraminal stenos is. IMPRESSION: 1.
== END | disposition home or self-care (01) ==
LOC: RADMRIMAIN 15:31
PROVIDERS: ATTEND Orthopaedic Surgery
DX: M47.812 Spondylosis without myelopathy or radiculopathy, cervical region (principal); M25.452 Effusion, left hip
CPT/HCPCS: 72148

== ENCOUNTER → 2023-11-26 | Outpatient (CLI) | payer BC ==
--- NOTE | 2023-11-26 09:56 | USB ---
Reason for Exam: Follow-up at short interval from prior study. Patient History: Menarche at age 12. First Full-Term at age 21. Hysterectomy at age 56. Postmenopausal. Maternal cousin had breast cancer under age 50. Risk Values: Terri 5 year model risk: 1.5%. NCI Lifetime model risk: 6.8%. Technique: Method: Targeted. Prior Study Comparison: 10/24/1999 Bilateral Special View Mammogram, [facility]. 08/25/2023 Bilateral MG 3D screening mammo w/cad, [facility]. 08/27/2023 Right US breast workup limited RT, [facility]. 08/27/2023 Right MG 3D work up w/cad RT, [facility]. Findings: The upper section of the breast of the right breast, the axilla of the right breast and the retroareolar of the right breast were scanned. Targeted ultrasound right breast superior aspect 10:00 to 2:00 including scanning of the subareolar region and axilla. * At the 10:00 position, 5 cm from the nipple, there is a stable probable cyst cluster measuring 6 x 6 x 4 mm. This can continue to be followed, probable mammographic correlate. * At the 12:00 position, 3 cm for from the nipple, there is a similar probable cyst cluster measuring 11 x 10 x 4 mm. This can continue to be followed, probable mammographic correlate. * The previously seen 4 mm lesion at the 1:00 position has resolved. * However, there is the development of a similar mixed echogenicity vague lesion measuring 6 mm now at the 11:00 position. We again note that the patient is on blood thinners. A tiny hematoma is favored here. * No other solid or cystic cyst lesion or axillary lymphadenopathy. Overall Assessment: Probably benign, BI-RAD 3 Management: Diagnostic Mammogram of the right breast in 3 months. For a total six-month follow-up right breast. Ultrasound can be ordered at that time if any changes have occurred. A clinical breast exam by your physician is recommended on an annual basis and results should be correlated with mammographic findings. This exam should not preclude additional follow-up of suspicious palpable abnormalities. Results were given to the patient verbally at the time of exam. Electronically signed and approved by: Jackelin Bingham M.D. Radiologist
== END | disposition home or self-care (01) ==
LOC: RADUSWWP 09:14
PROVIDERS: ATTEND Family Medicine
DX: R92.8 Other abnormal and inconclusive findings on diagnostic imaging of breast (principal); Z78.0 Asymptomatic menopausal state; Z80.3 Family history of malignant neoplasm of breast

== ENCOUNTER 2023-12-27 09:48 | Emergency (ER) | payer BC ==
[2023-12-27 10:17] VITALS: TEMP 97.6
[2023-12-27 10:33] LABS: Basophils # (A) 0.1 k/uL (0-0.2); Basophils % (A) 1 %; Eosinophils # (A) 0.1 k/uL (0-0.7); Eosinophils % (A) 2 %; HCT 44.6 % (34.0-46.0); HGB 14.4 gm/dL (11.4-16.0); Lymphocytes # (A) 2.4 k/uL (1.0-4.8); Lymphocytes % (A) 31 %; MCHC 32.3 g/dL (31.0-37.0); Mean Platelet Volume 8.6; Monocytes # (A) 0.4 k/uL (0-1.0); Monocytes % (A) 5 %; Neutrophils # (A) 4.5 k/uL (1.3-7.7); Neutrophils % (A) 59 %; Platelet Count 305 k/uL (150-450); RBC 4.64 m/uL (3.80-5.40); RDW 12.4 % (11.5-15.5); WBC 7.7 k/uL (3.8-10.6)
[2023-12-27 10:37] LABS: INR 0.9 (<1.2); Prothrombin Time 9.9 sec (10.0-12.5)
[2023-12-27 10:48] LABS: ALT 42 U/L (4-34); AST 35 U/L (14-36); African American GFR (CKD) >90 (>60 ml/min/1.73 sqM); Albumin 4.8 g/dL (3.5-5.0); Alkaline Phosphatase 96 U/L (38-126); Anion Gap 9 mmol/L; Blood Urea Nitrogen 17 mg/dL (7-17); Calcium 10.2 mg/dL (8.4-10.2); Carbon Dioxide 22 mmol/L (22-30); Chloride 108 mmol/L (98-107); Creatine Kinase 90 U/L (30-135); Glucose 109 mg/dL (74-99); Non-African American GFR(CKD) >90 (>60 ml/min/1.73 sqM); Potassium 4.3 mmol/L (3.5-5.1); Sodium 139 mmol/L (137-145); Total Bilirubin 0.8 mg/dL (0.2-1.3); Total Protein 7.7 g/dL (6.3-8.2)
--- NOTE | 2023-12-27 10:56 | CT ---
EXAMINATION TYPE: CT brain wo con CT DLP: 1084 mGycm, Automated exposure control for dose reduction was used. DATE OF EXAM: 12/27/2023 10:38 AM COMPARISON: None.. CLINICAL INDICATION:Female, 63 years old with history of Neuro deficit, acute, stroke suspected, slur red speech TECHNIQUE: Brain: Axial CT images of the brain were obtained with coronal and sagittal reformats created and rev iewed. Contrast used: None. Oral contrast used: None. FINDINGS: Extra-axial spaces: No abnormal extra-axial fluid collections. Basilar cisterns are patent. Ventricular system: Within normal limits. Cerebral parenchyma: No increased attenuation to suggest acute intraparenchymal hemorrhage. The gra y-white matter interface appears maintained. No significant atrophy. White matter unremarkable by C T. Cerebellum: No acute abnormality. Mass effect: No evidence of mass effect or midline shift. Intracranial vasculature: Unremarkable Soft tissues: No acute or concerning abnormality. Visualized orbits: Orbital contents appear grossly intact. Calvarium/osseous structures: No evidence of calvarial fracture. Paranasal sinuses and mastoid air cells: Clear. MRI is more sensitive for detecting acute processes such as infarct, and may be considered if clinica lly warranted. IMPRESSION: No acute intracranial CT abnormality.
--- NOTE | 2023-12-27 10:58 | XR ---
EXAMINATION TYPE: XR chest 2V DATE OF EXAM: 12/27/2023 10:40 AM CLINICAL INDICATION:Female, 63 years old with history of altered mental status; PHH COMPARISON: None TECHNIQUE: XR chest 2V. Frontal and lateral views of the chest.. FINDINGS: Lines/Tubes/Devices: No indwelling lines are seen. Heart/mediastinum: Heart size upper normal. Mediastinum appears normal. Pulmonary vascularity: Not appreciably increased, Lungs/Pleura: There is no evidence of pleural effusion, focal consolidation, or pneumothorax. Mildly increased interstitial lung markings, likely chronic changes. Musculoskeletal: No acute osseous abnormality demonstrated in the limits of the exam. Degenerative c hanges of the spine and shoulders. Other findings: Asymmetric elevation of the right hemidiaphragm. IMPRESSION: No acute cardiopulmonary abnormality.
--- NOTE | 2023-12-27 11:15 | CT ---
EXAMINATION TYPE: CT angio head neck DATE OF EXAM: 12/27/2023 10:51 AM COMPARISON: Same day CT head. CLINICAL INDICATION:Female, 63 years old with history of Neuro deficit, acute, stroke suspected; PHH, slurred speech TECHNIQUE: Axially acquired helical CT angiogram of the head and neck was obtained with contrast. Axi al images are supplemented with 3D reconstructions which were post-processed at an independent workst [facility]critical access hospital. NASCET criteria used. Contrast used: 65 mL of Isovue 370 with IV Contrast, Oral contrast used: None. CT DLP: 519.7 mGycm, Automated exposure control for dose reduction was used. FINDINGS: CTA Neck: Visualized ascending aorta appears mildly ectatic up to 3.5 cm. There is a conventional branch patter n from the arch without evidence of dissection or significant luminal narrowing. Artifact from venous contrast bolus limits evaluation of structures at the thoracic inlet including the brachiocephalic a rtery. Note the neck vessels are somewhat tortuous throughout. Right carotid system: The common carotid is patent. There is no hemodynamically significant diameter stenosis, dissection, nor pseudoaneurysm present. ICA is patent to the skull base. Left carotid system: The common carotid is patent. There is no hemodynamically significant diameter s tenosis, dissection, nor pseudoaneurysm present. ICA is patent to the skull base. Vertebral arteries: There is no significant atherosclerotic plaque at the origins of the vertebral ar teries. The vertebrals are patent to the skull base. The vertebral arteries are codominant. Other: Visualized neck soft tissues show no concerning abnormality. Cervical spine shows mild/moderat e multilevel degenerative disk disease with reversal of the normal cervical lordosis. Moderate canal and foraminal stenoses suggested at C5-C6 and C6-C7. Lung apices are free of infiltrate or pneumothor ax. Some haziness suggests air trapping or edema. CTA Head: Intracranial ICAs, bifurcations, ACAs, MCAs appear normally patent. Anterior communicating artery is definitely seen. The intracranial vertebral arteries enhance normally. Basilar artery is patent and unremarkable. Norm al basilar bifurcation without evidence of aneurysm. Visualized proximal internal controls manager are patent. A right posterior communicating artery is not definitely seen. A small left posterior communicating artery may be present. No intracranial large vessel occlusion, hemodynamically significant stenosis, aneurysm, dissection, o r arteriovenous malformation is shown. The dural venous sinuses appear grossly patent without evidence of thrombosis. Other: Please refer to same-day CT head report.. IMPRESSION: CTA neck: * Patent CTA neck. * No dissection, hemodynamically significant stenosis, or pseudoaneurysm detected in the carotid or vertebral arteries in the neck. CTA head: * Patent CTA head. * No intracranial large vessel occlusion, significant stenosis, or sizable aneurysm detected in the limits of CTA.
--- NOTE | 2023-12-27 12:10 | ED ---
General Adult HPI - General Chief complaint: Neuro Symptoms/Deficit Stated complaint: Neuro symptoms Time Seen by Provider: 12/27/23 09:55 Source: patient Mode of arrival: ambulatory Limitations: no limitations - History of Present Illness Initial comments: 63-year-old female who presents emergency department with left-sided facial droop. States that she just noticed it this morning when she was on a FaceTime call. She denies any numbness, tingling or weakness in her upper arm or leg. No history of stroke. Does have some dysarthria from a facial droop. She denies any head injuries. No headache or visual changes. No history of A-fib or carotid disease. No other alleviating, precipitating or modifying factors - Related Data Home Medications Medication Instructions Recorded Confirmed Ibuprofen [Motrin] 800 mg PO Q8H PRN 01/17/17 09/25/22 Escitalopram [Lexapro] 10 mg PO DAILY 09/25/22 09/25/22 Levothyroxine Sodium [Synthroid] 88 mcg PO DAILY 09/25/22 09/25/22 Previous Rx's Medication Instructions Recorded predniSONE [Deltasone] 20 mg PO BID #10 tab 12/27/23 valACYclovir HCL [Valacyclovir] 1,000 mg PO TID #21 tab 12/27/23 Allergies Allergy/AdvReac Type Severity Reaction Status Date / Time No Known Allergies Allergy Verified 12/27/23 09:55 Review of Systems ROS Statement: Those systems with pertinent positive or pertinent negative responses have been documented in the HPI. ROS Other: All systems not noted in ROS Statement are negative. Past Medical History Past Medical History: Thyroid Disorder History of Any Multi-Drug Resistant Organisms: None Reported Past Surgical History: Hysterectomy, Orthopedic Surgery Additional Past Surgical History / Comment(s): rt rotator cuff surgery x 3 Past Psychological History: Depression Smoking Status: Former smoker Past Alcohol Use History: None Reported Past Drug Use History: Marijuana General Exam Limitations: no limitations General appearance: alert, in no apparent distress Head exam: Present: atraumatic, normocephalic, normal inspection Eye exam: Present: normal appearance, PERRL, EOMI. Absent: scleral icterus, conjunctival injection, periorbital swelling ENT exam: Present: other (Paresis to the left upper and lower face) Neck exam: Present: normal inspection. Absent: tenderness, meningismus, lymphadenopathy Respiratory exam: Present: normal lung sounds bilaterally. Absent: respiratory distress, wheezes, rales, rhonchi, stridor Cardiovascular Exam: Present: regular rate, normal rhythm, normal heart sounds. Absent: systolic murmur, diastolic murmur, rubs, gallop, clicks GI/Abdominal exam: Present: soft, normal bowel sounds. Absent: distended, tenderness, guarding, rebound, rigid Extremities exam: Present: normal inspection, full ROM, normal capillary refill. Absent: tenderness, pedal edema, joint swelling, calf tenderness Back exam: Present: normal inspection Neurological exam: Present: alert, oriented X3, CN II-XII intact Psychiatric exam: Present: normal affect, normal mood Skin exam: Present: warm, dry, intact, normal color. Absent: rash Course Vital Signs 12/27/23 12/27/23 12/27/23 09:52 10:00 10:17 Temperature 98.1 F 97.6 F 97.6 F Pulse Rate 84 79 77 Respiratory 18 18 16 Rate Blood Pressure 154/87 115/89 119/71 O2 Sat by Pulse 99 96 95 Oximetry 12/27/23 12/27/23 10:59 12:46 Temperature 97.6 F 97.6 F Pulse Rate 79 73 Respiratory 16 24 Rate Blood Pressure 109/86 109/84 O2 Sat by Pulse 95 96 Oximetry Medical Decision Making - Medical Decision Making Was pt. sent in by a medical professional or institution (Dr. PA, METALIZING MACHINE OPERATOR AUTOMATIC, urgent care, hospital, or longterm...) When possible be specific @ -No Did you speak to anyone other than the patient for history (EMS, parent, family, police, friend...)? What history was obtained from this source @ -No Did you review nursing and triage notes (agree or disagree)? Why? @ -I reviewed and agree with nursing and triage notes Were old charts reviewed (outside hosp., previous admission, EMS record, old EKG, old radiological studies, urgent care reports/EKG's, longterm records)? Report findings @ -No old charts were reviewed Differential Diagnosis (chest pain, altered mental status, abdominal pain women, abdominal pain men, vaginal bleeding, weakness, fever, dyspnea, syncope, headache, dizziness, GI bleed, back pain, seizure, CVA, palpatations, mental health, musculoskeletal)? @ -Differential CVA Ischemic stroke, hemorrhagic stroke, brain tumor, atypical migraine, Wernicke's encephalopathy, seizure, multiple sclerosis, meningitis, encephalitis, hypoglycemia, Guillain-Montoya, electrolytes disturbance, myasthenia gravis.... This is not meant to be an all-inclusive list EKG interpreted by me (3pts min.). @ -Yes and demonstrates sinus rhythm with a rate of 78. AL interval 188. QRS 95. QTc of 389. Q wave lead III. Inverted T waves V2 through V6,1 and avl. No acute ST segment elevation. T wave inversions seen previously on EKG X-rays interpreted by me (1pt min.). @ -None done CT interpreted by me (1pt min.). @ -Yes and demonstrates no acute process U/S interpreted by me (1pt. min.). @ -None done What testing was considered but not performed or refused? (CT, X-rays, U/S, labs)? Why? @ -None What meds were considered but not given or refused? Why? @ -None Did you discuss the management of the patient with other professionals (professionals i.e. , PA, METALIZING MACHINE OPERATOR AUTOMATIC, lab, RT, psych nurse, social organization professor, assisted living housekeeper, teacher, staff weapons officer, rn case manager)? Give summary @ -No Was smoking cessation discussed for >3mins.? @ -No Was critical care preformed (if so, how long)? @ -No Were there social determinants of health that impacted care today? How? (Homele ssness, low income, unemployed, alcoholism, drug addiction, transportation, low edu. Level, literacy, decrease access to med. care, correction, rehab)? @ -No Was there de-escalation of care discussed even if they declined (Discuss DNR or withdrawal of care, Hospice)? DNR status @ -No What co-morbidities impacted this encounter? (DM, HTN, Smoking, COPD, CAD, Cancer, CVA, ARF, Chemo, Hep., AIDS, mental health diagnosis, sleep apnea, morbid obesity)? @ -None Was patient admitted / discharged? Hospital course, mention meds given and route, prescriptions, significant lab abnormalities, going to OR and other pertinent info. @ -Upon arrival patient seen and evaluated in trauma 1. Thorough history and physical exam was performed. Patient does have paresis of her left upper and lower face. Extremities are spared. Symptoms are concerning for Monreal's palsy however stroke workup is completed. Patient has no signs of any atherosclerotic disease. She has no risk factors for CVA. At this time the patient is dosed valacyclovir and prednisone for suspected Monreal's palsy. She will be discharged home and instructed to follow-up with her primary care doctor for further management of her symptoms. Return for any new or worsening symptoms especially those involving numbness, tingling or weakness in her extremities. Patient was very clear of this. She was discharged home in stable condition Undiagnosed new problem with uncertain prognosis? @ -No Drug Therapy requiring intensive monitoring for toxicity (Heparin, Nitro, Insulin, Cardizem)? @ -No Were any procedures done? @ -No Diagnosis/symptom? @ -Acute left facial paresis, suspected Monreal's palsy Acute, or Chronic, or Acute on Chronic? @ -Acute Uncomplicated (without systemic symptoms) or Complicated (systemic symptoms)? @ -Complicated Side effects of treatment? @ -No Exacerbation, Progression, or Severe Exacerbation? @ -No Poses a threat to life or bodily function? How? (Chest pain, USA, ID, pneumonia, PE, COPD, DKA, ARF, appy, cholecystitis, CVA, Diverticulitis, Homicidal, Suicidal, threat to staff... and all critical care pts) @ -No - Lab Data Result diagrams: 12/27/23 10:15 12/27/23 10:15 Lab Results 12/27/23 12/27/23 12/27/23 Range/Units 10:15 10:15 10:15 WBC 7.7 (3.8-10.6) k/uL RBC 4.64 (3.80-5.40) m/uL Hgb 14.4 (11.4-16.0) gm/dL Hct 44.6 (34.0-46.0) % MCV 96.0 (80.0-100.0) fL MCH 31.0 (25.0-35.0) pg MCHC 32.3 (31.0-37.0) g/dL RDW 12.4 (11.5-15.5) % Plt Count 305 (150-450) k/uL MPV 8.6 Neutrophils % 59 % Lymphocytes % 31 % Monocytes % 5 % Eosinophils % 2 % Basophils % 1 % Neutrophils # 4.5 (1.3-7.7) k/uL Lymphocytes # 2.4 (1.0-4.8) k/uL Monocytes # 0.4 (0-1.0) k/uL Eosinophils # 0.1 (0-0.7) k/uL Basophils # 0.1 (0-0.2) k/uL PT 9.9 L (10.0-12.5) sec INR 0.9 (<1.2) APTT 24.0 (22.0-30.0) sec Sodium 139 (137-145) mmol/L Potassium 4.3 (3.5-5.1) mmol/L Chloride 108 H (98-107) mmol/L Carbon Dioxide 22 (22-30) mmol/L Anion Gap 9 mmol/L BUN 17 (7-17) mg/dL Creatinine 0.63 (0.52-1.04) mg/dL Est GFR (CKD-EPI)AfAm >90 (>60 ml/min/1.73 sqM) Est GFR (CKD-EPI)NonAf >90 (>60 ml/min/1.73 sqM) Glucose 109 H (74-99) mg/dL Calcium 10.2 (8.4-10.2) mg/dL Total Bilirubin 0.8 (0.2-1.3) mg/dL AST 35 (14-36) U/L ALT 42 H (4-34) U/L Alkaline Phosphatase 96 (38-126) U/L Creatine Kinase 90 (30-135) U/L Troponin I (0.000-0.034) ng/mL Total Protein 7.7 (6.3-8.2) g/dL Albumin 4.8 (3.5-5.0) g/dL 12/27/23 Range/Units 10:15 WBC (3.8-10.6) k/uL RBC (3.80-5.40) m/uL Hgb (11.4-16.0) gm/dL Hct (34.0-46.0) % MCV (80.0-100.0) fL MCH (25.0-35.0) pg MCHC (31.0-37.0) g/dL RDW (11.5-15.5) % Plt Count (150-450) k/uL MPV Neutrophils % % Lymphocytes % % Monocytes % % Eosinophils % % Basophils % % Neutrophils # (1.3-7.7) k/uL Lymphocytes # (1.0-4.8) k/uL Monocytes # (0-1.0) k/uL Eosinophils # (0-0.7) k/uL Basophils # (0-0.2) k/uL PT (10.0-12.5) sec INR (<1.2) APTT (22.0-30.0) sec Sodium (137-145) mmol/L Potassium (3.5-5.1) mmol/L Chloride (98-107) mmol/L Carbon Dioxide (22-30) mmol/L Anion Gap mmol/L BUN (7-17) mg/dL Creatinine (0.52-1.04) mg/dL Est GFR (CKD-EPI)AfAm (>60 ml/min/1.73 sqM) Est GFR (CKD-EPI)NonAf (>60 ml/min/1.73 sqM) Glucose (74-99) mg/dL Calcium (8.4-10.2) mg/dL Total Bilirubin (0.2-1.3) mg/dL AST (14-36) U/L ALT (4-34) U/L Alkaline Phosphatase (38-126) U/L Creatine Kinase (30-135) U/L Troponin I <0.012 (0.000-0.034) ng/mL Total Protein (6.3-8.2) g/dL Albumin (3.5-5.0) g/dL Disposition Clinical Impression: Unilateral facial paresis, Monreal's palsy Disposition: HOME SELF-CARE Condition: Stable Instructions (If sedation given, give patient instructions): Monreal Palsy (ED) Additional Instructions: Please take the medications as directed. Follow-up with your primary care doctor. Tape your eye shut at night. Return should you have any numbness, tingling or weakness in your upper or lower extremities Prescriptions: predniSONE [Deltasone] 20 mg PO BID #10 tab valACYclovir HCL [Valacyclovir] 1,000 mg PO TID #21 tab Is patient prescribed a controlled substance at d/c from ED?: No Referrals: Thang Uriostegui DO [Primary Care Provider] - 1-2 days Time of Disposition: 12:10
[2023-12-27] MEDS: predniSONE 20 MG TAB PO STA (12:41)
[2023-12-27] MEDS: valACYclovir HCL 1,000 MG TABLET PO STA (12:44)
[2023-12-27 12:51] VITALS: BP 109/84; PULSE 73; RESP 24
== END 2023-12-27 13:06 | disposition home or self-care (01) ==
LOC: EC 09:48
DX: G51.0 Bell's palsy (principal); G81.94 Hemiplegia, unspecified affecting left nondominant side; Z87.891 Personal history of nicotine dependence
CPT/HCPCS: 36415; 93005; 80053; 82550; 84484; 85025; 85610; 85730; 71046; 70496; 70450; 70498; 99285; J7512; Q9967

== ENCOUNTER → 2024-01-13 | Outpatient (CLI) | payer BC | END | disposition home or self-care (01) | LOC: LABPAT 10:12 | PROVIDERS: ATTEND Orthopaedic Surgery | DX: Z01.812 Encounter for preprocedural laboratory examination (principal); M16.12 Unilateral primary osteoarthritis, left hip; Z22.322 Carrier or suspected carrier of Methicillin resistant Staphylococcus aureus | CPT/HCPCS: 86850; 86900; 86901; 87070 ==

== ENCOUNTER 2024-01-20 10:46 | Observation (INO) | payer BC ==
[2024-01-14 10:29] VITALS: BMI 32.9
--- NOTE | 2024-01-19 09:57 | P.HPOR ---
History of Present Illness H&P Date: 01/19/24 Chief Complaint: Left hip pain Patient is a 63-year-old female who presents with progressive left hip pain for the past year worsening over the past 3 months. She's having pain with walking and weightbearing activities. She is also having night symptoms. She notes stiffness. She tried therapy along with medications without much relief. She notes she's been limping. Review of Systems Per HPI Past Medical History Past Medical History: Osteoarthritis (OA), Thyroid Disorder Additional Past Medical History / Comment(s): RECENT DX OF PARK'S PALSY ON LT SIDE SINCE 12/27/23-SYMPTOMS ARE GETTING BETTER History of Any Multi-Drug Resistant Organisms: None Reported Past Surgical History: Hysterectomy, Orthopedic Surgery Additional Past Surgical History / Comment(s): rt rotator cuff surgery x 3, Past Anesthesia/Blood Transfusion Reactions: No Reported Reaction Smoking Status: Former smoker - Past Family History Father Family Medical History: Cancer Medications and Allergies Home Medications Medication Instructions Recorded Confirmed Type Escitalopram [Lexapro] 10 mg PO DAILY 09/25/22 01/14/24 History Levothyroxine Sodium [Synthroid] 88 mcg PO DAILY 09/25/22 01/14/24 History Gabapentin 300 mg PO BID 01/14/24 01/14/24 History traMADol HCL 50 mg PO BID PRN 01/14/24 01/14/24 History Allergies Allergy/AdvReac Type Severity Reaction Status Date / Time No Known Allergies Allergy Verified 01/14/24 10:12 Physical Examination - Hip left Gait: antalgic Tenderness with palpation: anterior Pain with motion: internal rotation and hip flexion ROM: flexion: 60 degrees ROM: internal rotation: 0 degrees (Pain) ROM: external rotation: 50 degrees Crepitus with motion: Yes Strength: extension: 5/5 Strength: flexion: 5/5 Strength: abduction: 5/5 Tests: impingement tests: positive Results The patient is a well-developed well-nourished female approximately 5 foot 2, 175 pounds of mesomorphic habitus. HEENT exam is nonfocal, neck is supple. She has limited painful passive motion of the left hip. Clinically she has 1 cm shortening of the left lower extremity. Her distal neurovascular appears intact left lower extremity. Straight leg raise is negative. - Diagnostic results Hip x-ray: image reviewed (2 views of the left hip obtained in the office show severe osteoarthrosis with [id number] changes and subchondral sclerosis.) Assessment and Plan Assessment: Left hip severe osteoarthrosis Plan: I talked to the patient at length regarding her condition along with treatment options. At this point she is quite limited having pain related to her left hip osteoarthrosis despite conservative measures. After a thorough discussion she opts to proceed with surgery. We'll plan to proceed with left total hip arthroplasty utilizing an anterior approach. Risks and benefits were discussed at length layman's terms. We will institute DVT prophylaxis postoperatively.
[~2024-01-20 10:46] MED LIST changes: -DEXAMETHASONE SOD PHOSPHATE 10 MG/ML 1 ML VIAL IV ONE; +MIDAZOLAM 2 MG/2 ML VIAL IV PRN; -ONDANSETRON 4 MG/2 ML VIAL IVP ONE; -SCOPOLAMINE 1.5MG/72HR PATCH TRANSDERM ONE; +TRANEXAMIC 1,000 MG/100ML-NACL 1,000 MG in SALINE 1 100ML.BAG IVPB PRN; -ceFAZolin 2 GM in SODIUM CHLORIDE 0.9% 100 ML IVPB ONE
[2024-01-20] MEDS: IV FLUID CONTINUATION 1,000 ML IV ONE (11:25)
[2024-01-20] MEDS: LACTATED RINGERS 1,000 ML IV SCH (11:26)
[2024-01-20] MEDS: SCOPOLAMINE 1 MG/72 HR PATCH TRANSDERM ONE (11:30)
[2024-01-20] MEDS: MELOXICAM 7.5 MG TAB PO PRN (11:30)
[2024-01-20] MEDS: ACETAMINOPHEN TAB 500 MG TAB PO PRN (11:31)
[2024-01-20] MEDS: ONDANSETRON 4 MG/2 ML VIAL IVP ONE (11:32)
[2024-01-20] MEDS: DEXAMETHASONE SOD PHOSPHATE 4 MG/ML 1 ML VIAL IV ONE (11:32)
[2024-01-20] MEDS: MIDAZOLAM 2 MG/2 ML VIAL IVP ONE (11:42)
[2024-01-20] MEDS: fentaNYL (PF) 50 MCG/ML 2 ML AMP IVP ONE (11:43)
--- NOTE | 2024-01-20 12:36 | P.ANPRN ---
Procedure Note - Anesthesia - Nerve Block Performed Right Lopez Single Time Out Performed: Yes (1141) Date of Procedure: 01/20/24 Procedure Start Time: 11:42 Procedure Stop Time: 11:47 Location of Patient: PreOp Indication: Acute Post-Operative Pain, Requested by Surgeon Specifically requested for management of pain by DrRicha: Rigo Rebolledo Sedation Type: Sedate with meaningful contact maintained Preparation: Sterile Prep Position: Supine Catheter: None Needle Types: Pajunk Needle Gauge: 21 Ultrasound used to visualize needle placement: Yes Ultrasound used to observe medication spread: Yes Injectate: 0.5% Ropivacaine (see comment for volume) (30cc) Blood Aspirated: No Pain Paresthesia on Injection Noted: No Resistance on Injection: Normal Image Stored and Saved: Yes Events: Uneventful and Well Tolerated
[2024-01-20] MEDS ORDERED: PHENYLEPHRINE-0.9% NACL SYG 1,000 MCG/10 ML SYRINGE ONE (13:27)
[2024-01-20] MEDS ORDERED: PROPOFOL 10 MG/ML 20 ML VIAL IV ONE (13:27)
[2024-01-20] MEDS ORDERED: ROPIVACAINE 5 MG/ML 30 ML VIAL ONE (13:27)
[2024-01-20] MEDS ORDERED: MIDAZOLAM 2 MG/2 ML VIAL ONE (13:27)
[2024-01-20] MEDS ORDERED: TRANEXAMIC 1,000 MG/100ML-NACL PREMIX BAG ONE (13:27)
[2024-01-20] MEDS ORDERED: KETAMINE HCL IN 0.9 % NACL 50 MG/5 ML SYRINGE ONE (13:27)
[2024-01-20] MEDS: ceFAZolin 1,000 MG in SODIUM CHLORIDE 0.9% 1,000 ML IRRIGATION ONE (13:41)
[2024-01-20] MEDS: LACTATED RINGERS 1,000 ML IV ONE ×2 (14:18→15:10)
[2024-01-20] MEDS ORDERED: HYDROcodone/APAP 5-325MG 1 EACH TAB PO PRN (15:03)
[2024-01-20] MEDS ORDERED: NALOXONE 0.4 MG/ML 1 ML VIAL IV PRN (15:03)
[2024-01-20] MEDS ORDERED: MAGNESIUM HYDROXIDE 2,400 MG/30 ML CUP PO PRN (15:03)
--- NOTE | 2024-01-20 15:25 | P.OP ---
Date of Procedure: 01/20/24 Preoperative Diagnosis: Left hip severe osteoarthrosis Postoperative Diagnosis: Same Procedure(s) Performed: Left total hip arthroplastypress-fitanterior approach Implants: Depuy Corail size 11 standard collared press-fit femoral stem, 36+1.5 ceramic femoral head, 54 mm Lynn acetabular shell with neutral polyethylene liner. Anesthesia: spinal Surgeon: Rigo Rebolledo Shellfish Bed Worker #1: Marshal Cruz Estimated Blood Loss (ml): 800 Pathology: none sent Condition: stable Disposition: PACU Indications for Procedure: The patient is a 63-year-old female who presents with progressive left hip pain secondary to osteoarthrosis despite conservative measures. A discussion of the risks and benefits of operative intervention versus continued conservative measures was made with the patient. She opted proceed with surgery. Operative risks include infection, neurovascular injury, development of blood clots, fracture, leg length discrepancy, instability, possible component loosening/failure, and possible need for subsequent procedures was discussed. Informed consent was obtained. Operative Findings: As below Description of Procedure: The patient was brought to the operating room, and after induction of spinal anesthesia was placed supine on the Guillermina table. Positioning was checked with fluoroscopy. The left hip was then prepped and draped in a normal fashion. A 12 cm incision was then made starting 2 fingerbreadths distal and 3 finger breaths posterior to the ASIS in line with the proximal femur. The skin was incised sharply. Subcutaneous tissues were divided sharply. Electrocautery was used for hemostasis. The fascia was split in line with skin incision. The interval between the sartorius and tensor fascia vi was then bluntly developed. The posterior fascia was opened with electrocautery. The lateral circumflex vessels were identified and cauterized prior to sectioning. A retractor was placed along the superior femoral neck as well as the anterior acetabular rim. A wide capsulotomy was performed. The neck cut was then made at a 45 angle to the shaft approximately 1 1/2 cm above the level of the lesser trochanter. The head was extracted. Attention was then paid towards preparing the acetabular. Anterior and posterior retractors were placed. The remaining capsular labral tissue sharply debrided clearly defining the acetabular margins. I began reaming with a 49 mm reamer taking care to initially medialize then reaming at 45 of abduction and 20 of anteversion. Sequential reaming is performed up to 53 mm. A trial 54 mm acetabular shell was inserted in the same orientation and was fully seated. There was good rim fit and stability. Positioning was checked with fluoroscopy. The final 54 mm acetabular shell was inserted again at 45 of abduction and 20 of anteversion. This was fully seated. There was good rim fit and stability. Again fluoroscopy was used to check the adequacy of placement. A neutral polyethylene liner was gently impacted. Care was taken to avoid any soft tissue interposition. Pulsatile lavage was utilized. Attention was then paid towards preparing the proximal femur. The central region was cleared of soft tissue. A canal finder was used to find the femoral canal. Sequential broaching was performed up to size 11 taking care to lateralize proximally. A calcar mill was used to fashion the medial calcar. There was good rotational stability. A standard neck along with a 36 mm +1.5 head was placed. The hip was gently reduced. Fluoroscopy was used to check the adequacy of positioning along with leg lengths. I felt both were good. The hip was gently dislocated. The trial components were removed. The final size 11 collared standard press-fit femoral stem was inserted parallel to the posterior cortex. This was fully seated and there was good rotational stability. A 36 mm +1.5 ceramic femoral head was placed. This was gently impacted. The hip was then gently reduced. Final fluoroscopic view showed adequate placement implant along with lutheran of leg length. Stability was checked with 80 of external rotation and 60 of extension of the right hip. The wound was irrigated with sterile lavage. The fascia was closed with running 0 Vicryl suture. There was minimal drainage therefore a deep drain was not placed. The second dose of IV TXA was given. The subcutaneous tissues were reapproximated interrupted 2-0 Vicryl sutures. The skin was reapproximated with 3-0 subcuticular strata fix suture. Skin tape and adhesive was applied. A sterile dressing was applied. The patient was then awoken from sedation and transferred to recovery room in good condition. Blood loss was estimated at 800 mL. No complications were incurred. Sponge and needle counts were correct at the end of the case. Marshal CAMPOVERDE assisted during the major components is case to include exposure, bone resection, implantation, and closure.
[2024-01-20] MEDS: HYDROmorphone 0.5 MG/0.5 ML SYRINGE IVP PRN ×2 (15:40→22:03)
--- NOTE | 2024-01-20 15:50 | XR ---
EXAMINATION TYPE: XR Hip Limited LT DATE OF EXAM: 01/20/2024 3:35 PM CLINICAL INDICATION:Female, 63 years old with history of Status post hip surgery, assess surgical ali gnment; [facility] COMPARISON: None. TECHNIQUE: XR Hip Limited LT; hip was examined in the frontal projection. FINDINGS: Post arthroplasty changes, hardware is intact, alignment is appropriate. No evidence of fra cture. Postoperative changes of the soft tissues with subcutaneous gas. No evidence of any acute osse ous pathology or joint dislocation. IMPRESSION: Hip arthroplasty with hardware intact and in appropriate alignment. No acute fracture.
[2024-01-20] MEDS: ALBUMIN HUMAN 5% IVPB STA (16:00)
--- NOTE | 2024-01-20 17:05 | FL ---
EXAMINATION TYPE: FL guidance operating room, XR Hip Limited LT Intraoperative/procedural fluoroscopi c services were provided. Total fluoroscopy time is 17.9 seconds with a total of 4 submitted images t o PACS. Please see the operative/procedural note for further details. DAP: 1.3206 mGym2
[2024-01-20] MEDS: GABAPENTIN 300 MG CAP PO SCH (20:38)
[2024-01-20] MEDS: SENNOSIDES-DOCUSATE SODIUM 1 EACH TAB PO SCH (20:38)
[2024-01-20] MEDS: HYDROcodone/APAP 7.5-325MG 1 EACH TAB PO PRN (20:38)
[2024-01-21] MEDS: RIVAROXABAN 10 MG TAB PO SCH (09:36)
--- NOTE | 2024-01-21 09:48 | P.PN ---
Subjective Progress Note Date: 01/21/24 Principal diagnosis: Status post direct anterior left total hip arthroplasty, hypotension Patient was evaluated today at bedside, she is resting on the cardiac stepdown unit. Patient was placed on the floor due to her low blood pressure that was noted after surgery. Patient had about 800 cc of blood loss. Patient did well with physical therapy this morning, she was ambulating very well with the assistance of a walker. She did have a minor headache that seems to be better. She denies any chest pain or shortness of breath at this time. She is having no issues with urinating. Objective - Vital Signs Vital signs: Vital Signs Temp 98.2 F 01/21/24 08:00 Pulse 82 01/21/24 08:00 Resp 18 01/21/24 08:00 BP 79/49 01/21/24 08:00 Pulse Ox 98 01/21/24 08:00 FiO2 Intake & Output 01/20/24 01/21/24 01/21/24 18:59 06:59 18:59 Intake Total 1651 540 Output Total 800 Balance 851 540 Weight 80 kg 82.1 kg Intake: IV 1651 Oral 540 Output: Estimated Blood Loss 800 Other: Voiding Method Toilet # Voids 1 - Exam Left lower extremity: Incision is clean, dry, and intact. The exofin fusion tape is in good condition. There is minimal soft tissue swelling and ecchymosis surrounding the medial and lateral aspects of the incision. Calf is soft, no tenderness with palpation. Plantar flexion, dorsiflexion, EHL, FHL are intact. Sensory exam to light touch throughout the extremity is intact, dorsal pedis pulses 2+. Assessment and Plan Assessment: Postoperative day #1 status post direct anterior left total hip arthroplasty Hypotension Other medical comorbidities Plan: Discussed with nursing today patient's low blood pressure, a 500 cc fluid bolus was initiated. I also ordered a unit of packed RBCs. Awaiting CBC results Pain control, continue with current medications DVT prophylaxis, continue Xarelto 10 mg while in hospital. Will likely utilize Eliquis 2.5 mg twice daily at discharge Wound care instructions were discussed, this to include showering Continue working with PT, weight-bear as tolerated with walker Medical recommendations appreciated Discharge planning: Likely will keep patient in hospital for additional day based on her blood pressure, will reassess later this afternoon. Plan for discharge to home with home care when stable Time with Patient: Less than 30
[2024-01-21 11:47] LABS: Basophils % (A) 0 %; Eosinophils % (A) 0 %; HCT 24.2 % (34.0-46.0); Lymphocytes # (A) 2.1 k/uL (1.0-4.8); Lymphocytes % (A) 29 %; MCH 31.7 pg (25.0-35.0); MCHC 32.8 g/dL (31.0-37.0); MCV 96.7 fL (80.0-100.0); Mean Platelet Volume 10.1; Monocytes # (A) 0.5 k/uL (0-1.0); Monocytes % (A) 7 %; Neutrophils # (A) 4.4 k/uL (1.3-7.7); Neutrophils % (A) 61 %; Platelet Count 174 k/uL (150-450); RDW 12.5 % (11.5-15.5); WBC 7.2 k/uL (3.8-10.6)
[2024-01-21 11:54] LABS: HGB 7.9 gm/dL (11.4-16.0)
[2024-01-21] MEDS: HYDROmorphone 1 MG/ML 1 ML SYRINGE IVP PRN (12:08)
[2024-01-21] MEDS: SODIUM CHLORIDE 0.9% 1,000 ML IV SCH (12:09)
[2024-01-21] MEDS: SODIUM CHLORIDE 0.9% 500 ML 500 ML IV ONE ×2 (12:09→12:11)
[2024-01-21] MEDS: FERROUS SULFATE 325 MG TAB PO SCH (17:25)
[2024-01-21] MEDS: ACETAMINOPHEN TAB 325 MG TAB PO PRN (20:13)
--- NOTE | 2024-01-22 01:20 | P.CONS ---
History of Present Illness - Reason for Consult Consult date: 01/21/24 Medical management - Chief Complaint Left hip arthroplasty - History of Present Illness Patient is a 63-year-old female with a past medical history of osteoarthritis, hypothyroidism and history of Park's palsy on the left side in December 2023, depression and prior history of smoking was admitted to hospital for an elective left total hip arthroplasty. Patient is status post left total hip arthroplasty press-fit anterior approach. Postoperatively patient was hypotensive with her blood pressure went down to 93/55 and pulse 58 respiration 16 and pulse ox 100% on 2 L oxygen via nasal cannula. She was given fluid bolus and hemoglobin is being monitored as well. Currently patient denied any complaints of dizziness or lightheadedness. Mild dizziness when she gets out of the bed. No nausea v omiting or abdominal pain or diarrhea. No cough or sputum production. Laboratory data showed WBC 7.2 hemoglobin 7.9 and platelets 174 Hip x-ray showed hip arthroplasty with hardware intact and in appropriate alignment. No acute fracture. Review of Systems Constitutional: Patient denies any fever or chills . No generalized weakness or weight loss. Abdomen: Patient denied nausea vomiting and diarrhea and abdominal pain. Cardiovascular: Patient denies any chest pain or short of breath no palpitations. Respiratory: patient denied any cough or sputum production. No shortness of breath Neurologic: Patient denied any numbness or tingling. no headache. Musculoskeletal: Patient denies any complaints of joint swelling or deformity. Skin: Negative Psychiatric: Negative Endocrine: No heat or cold intolerance. No recent weight gain. Genitourinary: No dysuria or hematuria. All other 14 point ROS negative except the above Past Medical History Past Medical History: Osteoarthritis (OA), Thyroid Disorder Additional Past Medical History / Comment(s): RECENT DX OF PARK'S PALSY ON LT SIDE SINCE 12/27/23-SYMPTOMS ARE GETTING BETTER History of Any Multi-Drug Resistant Organisms: None Reported Past Surgical History: Hysterectomy, Orthopedic Surgery Additional Past Surgical History / Comment(s): rt rotator cuff surgery x 3, Past Anesthesia/Blood Transfusion Reactions: No Reported Reaction Past Psychological History: Depression Smoking Status: Former smoker Past Alcohol Use History: Rare Additional Past Alcohol Use History / Comment(s): QUIT SMOKING 2020 Past Drug Use History: Marijuana Additional Drug Use History / Comment(s): USES MARIJUANA GUMMIES-LAST USED 2 NIGHTS AGO-INSTRUCTED NO ALCOHOL OR MARIJUANA AT LEAST 24 HOURS PRIOR TO PROCEDURE - Past Family History Father Family Medical History: Cancer Medications and Allergies Home Medications Medication Instructions Recorded Confirmed Type Escitalopram [Lexapro] 10 mg PO DAILY 09/25/22 01/20/24 History Levothyroxine Sodium [Synthroid] 88 mcg PO DAILY 09/25/22 01/20/24 History Gabapentin 300 mg PO BID 01/14/24 01/20/24 History Apixaban [Eliquis] 2.5 mg PO BID #60 tab 01/22/24 Rx Ferrous Sulfate [Iron (65 MG 325 mg PO BID #60 tab 01/22/24 Rx Elemental)] HYDROcodone/APAP 7.5-325MG [[place] 1 each PO Q6HR PRN #28 tab 01/22/24 Rx 7.5] Sennosides/Docusate Sodium 2 each PO DAILY PRN #30 tablet 01/22/24 Rx [Senna-S 8.6-50 mg Tablet] polyethylene glycoL 3350 [Miralax] 17 gm PO DAILY PRN #21 packet 01/22/24 Rx Allergies Allergy/AdvReac Type Severity Reaction Status Date / Time No Known Allergies Allergy Verified 01/14/24 10:12 Physical Exam Vitals: Vital Signs Temp Pulse Resp BP Pulse Ox 01/21/24 12:00 98.5 F 81 18 102/64 94 L 01/21/24 08:00 98.2 F 82 18 79/49 98 01/21/24 04:00 98.0 F 73 18 99/63 96 01/21/24 00:00 89 18 100/53 95 01/20/24 20:00 98.1 F 60 18 110/66 98 01/20/24 18:45 66 16 106/65 100 01/20/24 18:15 58 L 16 103/63 99 01/20/24 18:00 62 16 98/68 01/20/24 17:45 61 16 99/68 98 01/20/24 17:30 58 L 16 101/55 99 01/20/24 17:15 58 L 16 93/55 100 01/20/24 17:00 73 16 106/62 100 01/20/24 16:49 65 16 99/58 99 01/20/24 16:33 59 L 16 95/58 98 01/20/24 16:18 61 16 86/57 97 01/20/24 16:03 64 16 81/54 96 01/20/24 15:53 90/52 01/20/24 15:48 66 16 79/48 95 01/20/24 15:33 75 16 100/62 99 01/20/24 15:18 97.2 F L 98 16 97/74 99 Intake and Output 01/20/24 01/21/24 01/21/24 22:59 06:59 14:59 Intake Total 1140 Balance 1140 Intake: IV 600 Oral 540 Other: Voiding Method Toilet Toilet # Voids 1 1 Weight 80 kg 82.1 kg PHYSICAL EXAMINATION: Patient is lying in the bed comfortably, no acute distress, awake alert and oriented.. HEENT: Normocephalic. Neck is supple. Pupils reactive. Nostrils clear. Oral cavity is moist. Neck reveals no JVD, carotid bruits, or thyromegaly. CHEST EXAMINATION: Trachea is central. Symmetrical expansion. Lung gomez clear to auscultation and percussion. CARDIAC: Normal S1, S2 with no gallops. No murmurs ABDOMEN: Soft. Bowel sounds normal. No organomegaly. No abdominal bruits. Extremities: reveal no edema. No clubbing or cyanosis Neurologically awake, alert, oriented x3 with well-coordinated movements. No focal deficits noted Skin: No rash or skin lesions. Psychiatric: Coperative. Nonsuicidal Musculoskeletal: No joint swelling or deformity. Left hip surgical site intact. No leg swelling. Results CBC & Chem 7: 01/22/24 07:35 01/22/24 07:35 Labs: Abnormal Lab Results - Last 24 Hours (Table) 01/21/24 Range/Units 10:19 RBC 2.50 L (3.80-5.40) m/uL Hgb 7.9 L D (11.4-16.0) gm/dL Hct 24.2 L (34.0-46.0) % Assessment and Plan Assessment: Status post left total hip arthroplasty postoperative day 1 Hypotension postoperative likely due to anesthesia improving with IV hydration. Improving symptomatically. Hypothyroidism Osteoarthritis History of Park's palsy and December 2023 Depression Prior history of smoking and marijuana use DVT prophylaxis as per primary team Plan: Patient will be continued on pain management and limit IV narcotic medications. Continue with incentive spirometry. Will continue to monitor blood pressure closely. Patient was started back on home medications and follow-up repeat CBC and BMP and monitor H&H. Further recommendations based on clinical course. Thank you kindly for your consult. Time with Patient: Greater than 30
[2024-01-22 08:00] LABS: African American GFR (CKD) >90 (>60 ml/min/1.73 sqM); Anion Gap 4 mmol/L; Blood Urea Nitrogen 5 mg/dL (7-17); Calcium 8.7 mg/dL (8.4-10.2); Carbon Dioxide 25 mmol/L (22-30); Chloride 110 mmol/L (98-107); Glucose 110 mg/dL (74-99); Non-African American GFR(CKD) >90 (>60 ml/min/1.73 sqM); Potassium 3.7 mmol/L (3.5-5.1); Sodium 139 mmol/L (137-145)
[2024-01-22 08:06] LABS: Basophils % (A) 0 %; Eosinophils # (A) 0.1 k/uL (0-0.7); Eosinophils % (A) 1 %; HCT 29.6 % (34.0-46.0); Lymphocytes # (A) 2.3 k/uL (1.0-4.8); Lymphocytes % (A) 30 %; MCH 32.1 pg (25.0-35.0); MCHC 33.4 g/dL (31.0-37.0); MCV 96.2 fL (80.0-100.0); Mean Platelet Volume 9.7; Monocytes # (A) 0.6 k/uL (0-1.0); Monocytes % (A) 8 %; Neutrophils # (A) 4.4 k/uL (1.3-7.7); Neutrophils % (A) 58 %; Platelet Count 176 k/uL (150-450); RBC 3.07 m/uL (3.80-5.40); WBC 7.6 k/uL (3.8-10.6)
[2024-01-22 08:10] LABS: HGB 9.9 gm/dL (11.4-16.0)
[2024-01-22 08:13] VITALS: RESP 17
[2024-01-22] MEDS: LEVOTHYROXINE 88 MCG TAB PO SCH (08:51)
[2024-01-22] MEDS: ESCITALOPRAM 10 MG TAB PO SCH (08:51)
--- NOTE | 2024-01-22 09:51 | P.PN ---
Subjective Progress Note Date: 01/22/24 Principal diagnosis: Status post direct anterior left total hip arthroplasty, hypotension Patient was evaluated today at bedside, she is resting on the cardiac stepdown unit. Patient is doing well today. She did receive 1 unit of packed RBCs yesterday, her CBC is improving. She is continue to ambulate well with physical therapy. She is eager to be discharged home today. She denies any chest pain or shortness of breath at this time. She is having no issues with urinating. Objective - Vital Signs Vital signs: Vital Signs Temp 99.1 F 01/22/24 08:00 Pulse 89 01/22/24 08:00 Resp 17 01/22/24 08:00 BP 114/67 01/22/24 08:00 Pulse Ox 94 L 01/22/24 08:00 FiO2 Intake & Output 01/21/24 01/22/24 01/22/24 18:59 06:59 18:59 Intake Total 800 10 118 Balance 800 10 118 Weight 118 kg Intake: Oral 800 118 Blood Product 0 10 Rc As-1 Unit 0 10 [id number] Other: Voiding Method Toilet # Voids 5 2 - Exam Left lower extremity: Incision is clean, dry, and intact. The exofin fusion tape is in good condition. There is minimal soft tissue swelling and ecchymosis surrounding the medial and lateral aspects of the incision. Calf is soft, no tenderness with palpation. Plantar flexion, dorsiflexion, EHL, FHL are intact. Sensory exam to light touch throughout the extremity is intact, dorsal pedis pulses 2+. - Labs CBC & Chem 7: 01/22/24 07:35 01/22/24 07:35 Labs: Abnormal Lab Results - Last 24 Hours (Table) 01/21/24 01/21/24 01/22/24 Range/Units 10:19 10:19 07:35 RBC 2.50 L 3.07 L (3.80-5.40) m/uL Hgb 7.9 L D 9.9 L D (11.4-16.0) gm/dL Hct 24.2 L 29.6 L (34.0-46.0) % Chloride (98-107) mmol/L BUN (7-17) mg/dL Creatinine (0.52-1.04) mg/dL Glucose (74-99) mg/dL Crossmatch See Detail 01/22/24 Range/Units 07:35 RBC (3.80-5.40) m/uL Hgb (11.4-16.0) gm/dL Hct (34.0-46.0) % Chloride 110 H (98-107) mmol/L BUN 5 L (7-17) mg/dL Creatinine 0.51 L (0.52-1.04) mg/dL Glucose 110 H (74-99) mg/dL Crossmatch Assessment and Plan Assessment: Postoperative day #2 status post direct anterior left total hip arthroplasty Acute blood loss anemia, expected surgical outcome Hypotension Other medical comorbidities Plan: Pain control, plan for discharge home on [place]. Patient has been taking tramadol and gabapentin for her back pain. She will hold off taking the tramadol at this time, she will continue the gabapentin. DVT prophylaxis, Eliquis 2.5 mg twice a day for 28-day Ferrous sulfate 325 mg twice a day for 30 days Wound care instructions were discussed, this to include showering Home therapy and nursing after discharge Medical recommendations appreciated Discharge planning: Plan for discharge home today with home health care Time with Patient: Less than 30
--- NOTE | 2024-01-22 09:55 | P.DS ---
Providers Date of admission: 01/21/24 12:00 Attending physician: Rigo Rebolledo Consults: 01/20/24 15:03 Consult Physician Routine Consulting Provider: Thang Uriostegui Reason/Comments: medical management s/p direct anterior left total hip arthroplasty Do you want consulting provider notified?: Yes Primary care physician: Thang Uriostegui Hospital Course: Date of admission: 01/20/2024 Date of discharge: 01/22/2024 Admission diagnosis: Status post direct anterior left total hip arthroplasty Discharge diagnosis: Same, acute blood loss anemia Attending physician: Dr. Kim Surgical procedures: Direct anterior left total hip arthroplasty Brief history: Patient is a 63-year-old female with a history of progressive primary left hip osteoarthritis. At this point patient has failed conservative treatment measures and has opted to proceed with a elective direct anterior left total hip arthroplasty. Hospital course: Details of patient's surgery can be found in operative report. Patient tolerated the procedure well and was subsequently transported to orthopedic floor. Patient's orthopeidc and medical care was provided daily. Patient had daily laboratory tests performed for evaluation of overall blood counts. Patient had daily physical therapy to include strengthening range of motion as well as education with walker ambulation. Patient was treated wit for their postoperative DVT prophylaxis during their inpatient stay. Patient was noted to have a relatively uneventful postoperative course. Patient reported satisfactory pain control with oral pain medications by postoperative day 1. Patient showed satisfactory progress with physical therapy. Patient moved steadily through the program and had no difficulty meeting the goals by postoperative day 2. Given patient's otherwise satisfactory course and having met physical therapy goals, plan is to discharge patient home on postoperative day 2. Discharge condition/disposition: Patient will be discharged home in stable condition. Discharge medications: Instructions are given on resumption of patient's normal daily medications per primary care recommendation, in addition patient will be prescribed ferrous sulfate 325 mg, senna S, [place] 7.5 mg / 325 mg, Eliquis 2.5 mg, mirilax 17g Discharge instructions: 1. Wound care and infection precautions, keep incision dry and covered while showering, no lotions, creams, moisturizers. No soaking, tubs, pools, hottubs. Do not scrub over the incision. 2. Weight-bear as tolerated with walker / cane until follow-up. 3. Ice and elevate when necessary. Do not exceed 20 minutes per hour with ice pack. 4. Utilize compression sleeve until seen at first follow up appointment. 5. Visiting nursing care. 6. Home physical therapy. 7. Pain meds and anticoagulants per prescription. 8. Pain medication has potential to cause constipation. Increase oral fluid and fiber intake. Contact primary care provider if you have not had a bowel movement within 48 hours after discharge 9. No anti-inflammatory medication until discussed at first post operative visit, this including Motrin, Aleve, Mobic, Diclofenac. 10. Follow up in office at 2 weeks postop with Leonardo Maravilla PA-C/Marshal Ashley 11. Follow up with your primary care doctor 7-10 days after discharge. 12. Contact [facility] with any questions, . Procedures: Direct anterior left total hip arthroplasty Patient Condition at Discharge: Good Plan - Discharge Summary Discharge Rx Participant: No New Discharge Prescriptions: New Apixaban [Eliquis] 2.5 mg PO BID #60 tab Ferrous Sulfate [Iron (65 MG Elemental)] 325 mg PO BID #60 tab polyethylene glycoL 3350 [Miralax] 17 gm PO DAILY PRN #21 packet PRN Reason: Constipation HYDROcodone/APAP 7.5-325MG [[place] 7.5] 1 each PO Q6HR PRN #28 tab PRN Reason: Pain Sennosides/Docusate Sodium [Senna-S 8.6-50 mg Tablet] 2 each PO DAILY PRN #30 tablet PRN Reason: Constipation No Action Escitalopram [Lexapro] 10 mg PO DAILY traMADol HCL 50 mg PO BID PRN PRN Reason: Pain Levothyroxine Sodium [Synthroid] 88 mcg PO DAILY Gabapentin 300 mg PO BID Discharge Medication List Escitalopram [Lexapro] 10 mg PO DAILY 09/25/22 [History] Levothyroxine Sodium [Synthroid] 88 mcg PO DAILY 09/25/22 [History] Gabapentin 300 mg PO BID 01/14/24 [History] traMADol HCL 50 mg PO BID PRN 01/14/24 [History] Apixaban [Eliquis] 2.5 mg PO BID #60 tab 01/22/24 [Rx] Ferrous Sulfate [Iron (65 MG Elemental)] 325 mg PO BID #60 tab 01/22/24 [Rx] HYDROcodone/APAP 7.5-325MG [[place] 7.5] 1 each PO Q6HR PRN #28 tab 01/22/24 [Rx] Sennosides/Docusate Sodium [Senna-S 8.6-50 mg Tablet] 2 each PO DAILY PRN #30 tablet 01/22/24 [Rx] polyethylene glycoL 3350 [Miralax] 17 gm PO DAILY PRN #21 packet 01/22/24 [Rx] Follow up Appointment(s)/Referral(s): Marshal Cruz, MARYS[facility] [PHYSICIAN H[employer] AND [employer]ENER] - 2 Weeks [facility] Visiting Nurse, [NON-STAFF] - Patient Instructions/Handouts: Anterior Hip Replacement (DC) Activity/Diet/Wound Care/Special Instructions: Orthopedic Discharge Instructions: 1. Wound care and infection precautions, keep incision dry and covered while showering, no lotions, creams, moisturizers. No soaking, pools, hot tubs. Do not scrub over incision. 2. Weight-bear as tolerated with walker / cane until follow-up. 3. Ice and elevate when necessary. Do not exceed 20 minutes per hour with ice pack. 4. Utilize compression sleeve until seen at first follow up appointment. 5. Pain meds and anticoagulants per prescription. 6. Pain medication has potential to cause constipation. Increase oral fluid and fiber intake. Contact primary care provider if you have not had a bowel movement within 48 hours after discharge. 7. No anti-inflammatory medication until discussed at first post operative visit, this including Motrin, Aleve, Mobic, Diclofenac. 8. Follow up in office at 2 weeks postop with Leonardo Maravilla PA-C / Marshal Cruz PA-C 9. Follow up with your primary care doctor 7-10 days after discharge. 10. Contact [facility] with any questions, . Keep incision clean, dry, intact. While showering, cover fusion tape with Saran wrap. Keep fusion tape on until follow-up appointment in the office in 2 weeks Discharge Disposition: HOME WITH HOME HEALTH SERVICES
[2024-01-22 13:14] VITALS: BP 120/62; PULSE 80; TEMP 98.2
== END 2024-01-22 13:49 | disposition home health service (06) ==
LOC: OR 10:46 → 3SCARD 15:15 → 4SSUR 15:15 → 3SCARD 15:16 → OR 01-21 12:00
PROVIDERS: ADMIT Orthopaedic Surgery; ATTEND Orthopaedic Surgery
DX: M16.12 Unilateral primary osteoarthritis, left hip (principal); I95.81 Postprocedural hypotension; D62 Acute posthemorrhagic anemia; E03.9 Hypothyroidism, unspecified; Z87.891 Personal history of nicotine dependence; G51.0 Bell's palsy; Z79.899 Other long term (current) drug therapy; Z79.890 Hormone replacement therapy; Z80.9 Family history of malignant neoplasm, unspecified; F32.A Depression, unspecified
CPT/HCPCS: 97116; 97161; 97166; 64447; 86900; 86901; 80048; 85025 ×2; 86850; 86920; 73501; 27130; G0378 ×2; C1776; P9016; P9045; J2250; J1100; J0690 ×3; J2405; J3010; J1170 ×4; J2795; J2704; J2371; 36430

== ENCOUNTER → 2024-03-31 | Outpatient (CLI) | payer BC ==
--- NOTE | 2024-03-31 08:27 | MM ---
Reason for Exam: Follow-up at short interval from prior study. Last screening mammogram was performed 7 month(s) ago. Patient History: Menarche at age 12. First Full-Term at age 21. Hysterectomy at age 56. Postmenopausal. Maternal cousin had breast cancer under age 50. Risk Values: Terri 5 year model risk: 1.5%. NCI Lifetime model risk: 6.8%. Prior Study Comparison: 10/24/1999 Bilateral Special View Mammogram, [facility]. 08/25/2023 Bilateral MG 3D screening mammo w/cad, [facility]. 08/27/2023 Right MG 3D work up w/cad RT, [facility]. Tissue Density: Right: There are scattered areas of fibroglandular density. Findings: Analyzed By CAD. Pattern appears stable. There is an oval area of increased density in the anterior right breast which appears to be correlated with the previous larger round density subareolar right breast. Corresponding abnormality on the lateral is not evident. Short-term follow-up can be performed. No suspicious groups of microcalcifications, spiculated or lobular masses, architectural distortion or other secondary signs of malignancy are mammographically apparent. Overall Assessment: Probably benign, BI-RAD 3 Management: Diagnostic Mammogram of both breasts in 5 months. A negative mammogram report should not preclude additional follow up of suspicious palpable abnormalities. Patient should continue monthly self breast exam. A clinical breast exam by your physician is recommended on an annual basis and results should be correlated with mammographic findings. Note on Terri scores and lifetime risk: 1. A Terri score greater than 3% is considered moderate risk. If this is the case, consider specialist referral to assess eligibility for a risk reducing agent. 2. If overall lifetime risk for the development of breast cancer is 20% or higher, the patient may qualify for future screening with alternating mammogram and breast MRI. [facility], , 03/31/2024 8:24 AM. Electronically signed and approved by: Fidel Herzog D.O. Radiologis
== END | disposition home or self-care (01) ==
LOC: RADMAMWWP 07:44
PROVIDERS: ATTEND Family Medicine
DX: R92.8 Other abnormal and inconclusive findings on diagnostic imaging of breast
CPT/HCPCS: 77061; 77065